=== PATIENT | female | born 1970 | race Caucasian/White ===

== ENCOUNTER 2023-01-17 07:50 | Outpatient (OUT) | payer OTHER, SELFPAY ==
--- NOTE | 2023-01-17 | XR_ITS ---
[address] [address] Patient Name: LORA DELGADILLO MRN: [id number] date: 1970 Sex: F Assigned Patient Location: [facility] Current Patient Location: [facility] Accession/Order Number: [id number] Exam Date: 01/17/2023 08:23 Report Date: 01/17/2023 09:20 At the request of: IVELISSE CLEMENT Procedure: XR lumbar spine 2-3V EXAM: XR lumbar spine 2-3V HISTORY: Low back pain COMPARISON: None. TECHNIQUE: 2 views FINDINGS: Satisfactory alignment. Disc spacers of L4-L5 with fusion of the vertebral bodies. Maintained vertebral body heights maintained. No acute fracture or subluxation. Mild multilevel endplate degenerative changes. Unremarkable soft tissues. XR/XR lumbar spine 2-3V IMPRESSION: No acute fracture. Electronically authenticated by: REY MUELLER Date: 01/17/2023 09:20
--- NOTE | 2023-01-17 07:59 | MM_ITS ---
Patient: LORA DELGADILLO Exam Date: 01/17/2023 : 1970 Gender:F Ordering : DR Karol Cabrera M.D. Admission #: [id number] Family : Order #: [id number] CLICK HERE TO VIEW EXAM RADIOLOGY REPORT PROCEDURE: MM TOMOSYNTHESIS SCREENING BI COMPARISON: MM SCREENING MAMMO BI, 04/07/2017. INDICATIONS: Screening for malignant neoplasm Calculator Name NCI Breast Cancer Risk Assessment Tool 5 Year Breast Cancer Risk 1.10% Lifetime Breast Cancer Risk 8.20% Personal Breast Cancer No Personal Ovarian Cancer No Treatments None Family Cancers Grandmother-paternal with ovarian cancer at age 52; Grandfather-paternal with lung cancer at age 56. LOCATION: [facility] BREAST COMPOSITION: Extremely dense, which lowers the sensitivity of mammography. FINDINGS: DIAGNOSTIC CATEGORY 2--BENIGN FINDING. NO CHANGE FROM COMPARISON. Scattered benign-appearing nodules are present. Scattered benign-appearing lymph nodes are present. RIGHT BREAST: No significant suspicious finding. LEFT BREAST: No significant suspicious finding. RECOMMENDATIONS: ROUTINE MAMMOGRAM AND CLINICAL EVALUATION IN 12 MONTHS. PLEASE NOTE: A NORMAL MAMMOGRAM DOES NOT EXCLUDE THE POSSIBILITY OF BREAST CANCER. A CLINICALLY SUSPICIOUS PALPABLE LUMP SHOULD BE BIOPSIED. Dictated by: Kalen Blancas MD on 01/17/2023 at 10:51 Approved by: Kalen Blancas MD on 01/17/2023 at 10:53
[2023-01-17 08:01] LABS: Basophils Absolute Auto 0.1 10^3/uL (0.0-0.1); Basophils Percent Auto 1.1 % (0.2-2.0); Eosinophils Absolute Auto 0.1 10^3/uL (0.0-0.7); Eosinophils Percent Auto 1.3 % (0.9-7.0); Hemoglobin 15.4 g/dL (12.0-16.0); Immature Granulocytes Abs Auto 0.02 10^3/uL (0.00-0.03); Immature Granulocytes Pct Auto 0.3 % (0.0-0.5); Lymphocytes Absolute Auto 3.5 10^3/uL (1.2-3.8); Lymphocytes Percent Auto 45.4 % (20.5-60.0); Mean Corpuscular HGB Conc 34.2 g/dL (29.9-35.2); Mean Corpuscular Hemoglobin 29.6 pg (26.7-34.0); Mean Corpuscular Volume 86.4 fL (81.0-99.0); Mean Platelet Volume 9.6 fL (9.5-13.5); Monocytes Absolute Auto 0.5 10^3/uL (0.3-0.8); Monocytes Percent Auto 6.6 % (1.7-12.0); Neutrophils Absolute Auto 3.5 10^3/uL (1.4-6.5); Neutrophils Percent Auto 45.3 % (43.0-75.0); Platelet Count 355 10^3/uL (150-450); Red Blood Count 5.21 10^6/uL (4.20-5.40); Red Cell Distribution Width 11.5 % (11.0-15.0); White Blood Count 7.6 10^3/uL (4.0-11.0)
[2023-01-17 08:33] LABS: Alanine Aminotransferase 28 U/L (14-59); Albumin Globulin Ratio 1.1; Alkaline Phosphatase 80 U/L (46-116); Anion Gap 12.9; Aspartate Amino Transferase 16 U/L (15-37); BUN Creatinine Ratio 18.1; Bilirubin Total 0.5 mg/dL (0.2-1.0); Calcium 9.3 mg/dL (8.5-10.1); Carbon Dioxide 27.5 mmol/L (21.0-32.0); Chloride 97 mmol/L (98-107); Chol HDL Ratio 5.3; Cholesterol 314 mg/dL (<=200); Estimated GFR (African America >60 (>=60); Estimated GFR (Non-African Ame >60 (>=60); Globulin 3.8 g/dL; Glucose 391 mg/dL (74-106); HDL Cholesterol 59 mg/dL (40-60); Potassium 4.4 mmol/L (3.5-5.1); Sodium 133 mmol/L (136-145); Total Protein 7.8 g/dL (6.4-8.2); Triglycerides 219 mg/dL (<=150); VLDL CHOLESTEROL 43.8 mg/dL
[2023-01-17 08:40] LABS: Estimated Average Glucose 309 mg/dL; Glycohemoglobin A1C 12.4 % (4.5-6.2)
== END 2023-01-17 07:51 | disposition home or self-care (01) ==
LOC: MAMMO 07:50
PROVIDERS: PCP Family Medicine; Visit Provider Family Medicine
DX: Z00.00 Encounter for general adult medical examination without abnormal findings (principal); Z12.31 Encounter for screening mammogram for malignant neoplasm of breast; M54.50 Low back pain, unspecified; Z80.41 Family history of malignant neoplasm of ovary; Z80.1 Family history of malignant neoplasm of trachea, bronchus and lung
CPT/HCPCS: 36415; 72100; 77063; 77067; 80053; 80061; 83036; 85025

== ENCOUNTER 2023-02-25 07:03 | Outpatient (RCR) | payer OTHER, SELFPAY | END 2023-03-30 07:45 | disposition home or self-care (01) | LOC: PT 07:03 | PROVIDERS: PCP Family Medicine; Visit Provider Physician Assistant | DX: M51.26 Other intervertebral disc displacement, lumbar region (principal); M53.3 Sacrococcygeal disorders, not elsewhere classified | CPT/HCPCS: 97010; 97012; 97014; 97110; 97113; 97140; 97163 ==

== ENCOUNTER 2023-03-31 09:50 | Outpatient (RCR) | payer OTHER, SELFPAY | END 2023-06-13 11:23 | disposition home or self-care (01) | LOC: PT 09:50 | PROVIDERS: PCP Family Medicine; Visit Provider Physician Assistant | DX: M51.26 Other intervertebral disc displacement, lumbar region (principal); M53.3 Sacrococcygeal disorders, not elsewhere classified | CPT/HCPCS: 97010; 97012; 97014; 97110; 97140 ==

== ENCOUNTER 2023-04-16 11:36 | Outpatient (OUT) | payer OTHER, SELFPAY ==
--- OUTSIDE RECORDS SUMMARY | 2023-04-16 11:44 | XMS_ITS | CCD ---
Author Name Unknown Address [address] [place] [address] Organization [facility] Care Team Providers Care Freight Trucker Name Role Phone Clark, Froilan S Unavailable Unavailable Unavailable, Family Physician Unavailable Un available Unavailable, Family Physician Unavailable Un available Clark, Froilan S Unavailable Unavailable Unavailable, Family Physician Unavailable Un available Unavailable, Family Physician Unavailable Un available Shall, Nagi F Unavailable Unavailable Unavailable, Family Physician Unavailable Un available Unavailable, Family Physician Unavailable Un available Shall, Nagi F Unavailable Unavailable Unavailable, Family Physician Unavailable Un available Unavailable, Family Physician Unavailable Un available URBANO, DR KAROL Elder Admitting Unavailable URBANO, DR KAROL Elder Attending Unavailable CABRERA, DR KAROL Elder Primary Care Unavailable DR KAROL CABRERA Admitting Unavailable URBANO, DR KAROL Elder Attending Unavailable CABRERA, DR KAROL Elder Primary Care Unavailable Karol Cabrera Unavailable Mihaela Toro Unavailable Allergies Allergy Classification Reported Allergen(s) Allergy Type Date of Onset Reaction(s) Facility (6 sources) Mushroom (edible) Propensity to adverse reactions Unknown myQaa Other (6 sources) Shellfish Propensity to adverse reactions Unknown myQaa Other (6 sources) [place] Propensity to adverse reactions Unknown myQaa Other (6 sources) HUMALON KWIK PEN Propensity to adverse reactions rash myQaa Other (3 sources) Allergies Reconciled Propensity to adverse reactions Unknown myQaa Other Medications Current Medications Medication Drug Class(es) Dates Sig (Normalized) Sig (Original) albuterol 0.83 mg/ml inhalation solution (6 sources) beta2-Adrenergic Agonist Albuterol Sulfate (2.5 MG/3ML) 0.083% 3 ml Inhalation Three times a day for 90 days Active aspirin 81 mg oral tablet (6 sources) Platelet Aggregation Inhibitor, Nonsteroidal Anti-inflammatory Drug take 1 tablet by mouth once daily Aspirin 81 81 MG 1 tablet Orally Once a day Active take 1 tablet by delores th every twenty-four hours Aspirin 81 81 MG 1 tablet Orally Once a day Active breath-actuated 120 actuat beclomethasone dipropionate 0.08 mg/actuat metered dose inhaler (6 sources) Corticosteroid Start: 02-23-2018 take 2 puff(s) by inhalation twice daily Qvar RediHaler 80 MCG/ACT 2 puffs Inhalation Twice a day for 90 days Jan, Active Benadryl Allergy 25 MG (2 sources) take 1 tablet by mouth at bedtime Benadryl Allergy 25 MG 1 tab Orally HS Active cetirizine hydrochloride 10 mg oral tablet (6 sources) Histamine-1 Receptor Antagonist take 1 tablet by mouth every twenty-four hours Cetirizine HCl 10 MG 1 tablet Orally Once a day otc Active dextromethorphan hydrobromide 15 mg / guaiFENesin 400 mg / pseudoephedrine hydrochloride 60 mg oral tablet (5 sources) alpha-Adrenergic Agonist, Uncompetitive V-nodxic-V-asparta te Receptor Antagonist, Sigma-1 Agonist Start: 09-14-2022 take 1 tablet by mouth every six hours as needed for cough Capmist DM 60-15-400 MG 1 tablet Orally q6hrs prn congestion/cough for 7 days Aug, Active diphenhydrAMINE hydrochloride 25 mg oral tablet (4 sources) Histamine-1 Receptor Antagonist take 1 tablet by mouth at bedtime Benadryl Allergy 25 MG 1 tab Orally HS Active 0.5 ml dulaglutide 3 mg/ml auto-injector (9 sources) GLP-1 Receptor Agonist Trulicity 1.5 MG/0.5ML INJECT 1 PEN SUBCUTANEOUSLY ONCE A WEEK for 28 Active DULoxetine 60 mg delayed release oral capsule (6 sources) Serotonin and Norepinephrine Reuptake Inhibitor take 1 capsule by mouth once daily DULoxetine HCl 60 MG TAKE 1 CAPSULE BY MOUTH EVERY DAY for 90 Active estrogens, conjugated (custodial) 0.625 mg/ml vaginal cream (6 sources) Estrogen Premarin 0.625 MG/GM _insert 1 GRAM VAGINALLY 3 TIMES A WEEK for 90 Active Premarin 0.625 M G/GM as directed Vaginal Not-Taking fenofibrate 160 mg oral tablet (6 sources) Peroxisome Proliferator Receptor alpha Agonist take 1 tablet by mouth once daily Fenofibrate 160 MG TAKE 1 TABLET BY MOUTH EVERY DAY for 90 Active FreeStyle Deidre 2 Sensor - (6 sources) FreeStyle Deidre 2 Sensor - USE DIRECTED for 28 Active FreeStyle Deidre 2 Sensor - USE DIRECTED for 28 Not-Taking 24 hr metoprolol succinate 25 mg extended release oral tablet (6 sources) beta-Adrenergic Leola take 1 tablet by mouth once daily Metoprolol Succinate ER 25 MG TAKE 1 TABLET BY MOUTH EVERY DAY for 90 Active montelukast 10 mg oral tablet (6 sources) Leukotriene Receptor Antagonist Start: take 1 tablet by mouth every twenty-four hours Singulair 10 MG 1 tablet Orally Once a day for 30 days Jun, Active Multivitamin Women - (6 sources) Multivitamin Wom en - Orally Active naproxen sodium 220 mg oral tablet (6 sources) Nonsteroidal Anti-inflammatory Drug take 2 tablets by mouth every twelve hours as needed Aleve 220 MG 2 tabs Orally every 12 hrs prn Active omeprazole 40 mg delayed release oral capsule (6 sources) Proton Pump Inhibitor take 1 capsule by mouth once daily Omeprazole 40 MG TAKE 1 CAPSULE BY MOUTH EVERY DAY for 90 Active pantoprazole 40 mg delayed release oral tablet (2 sources) Proton Pump Inhibitor Start: take 1 tablet by mouth every twenty-four hours Pantoprazole Sodium 40 MG 1 tablet Orally Once a day for 30 day(s) Dec, Active predniSONE 20 mg oral tablet (5 sources) Start: predniSONE 20 MG Take 3 tabs daily x 3 days, then take 2 tabs daily x 3 days, then take 1 tab daily x 3 days. Orally Once a day for 9 days Aug, Active ProAir HFA 108 (90 Base) MCG/ACT (6 sources) take 2 puff(s) by inhalation every four hours as needed ProAir HFA 108 (90 Base) MCG/ACT 2 puffs as needed Inhalation every 4 hrs for 90 days Active traMADol hydrochloride 50 mg oral tablet (2 sources) Opioid Agonist Start: take 1 tablet by mouth three times daily as needed traMADol HCl 50 MG 1 tablet as needed Orally tid prn for 7 days Dec, Active traZODone hydrochloride 150 mg oral tablet (6 sources) Serotonin Reuptake Inhibitor take 1 tablet by mouth once daily at bedtime traZODone HCl 150 MG TAKE 1 TABLET BY MOUTH EVERYDAY AT BEDTIME for 90 Active Completed/Discontinued Medications Medication Drug Class(es) Dates Sig (Normalized) Sig (Original) erythromycin 0.005 mg/mg ophthalmic ointment (6 sources) Macrolide, Macrolide Antimicrobial Start: 11-13-2019 Erythromycin 5 MG/GM 1 cm ribbon Ophthalmic Four times a day for 7 days Oct, Not-Taking FreeStyle Deidre [place] (6 sources) FreeStyle Deidre [place] check blood sugar for DM type 2 with hyperglycemia E11.65 monitor glucose 6 times a day for 14 days Not-Taking 3 ml insulin glargine 100 unt/ml pen injector (6 sources) Insulin Analog Lantus SoloStar 100 UNIT/ML 30units Subcutaneous 1 inearly morning for 90 day(s) dx: E11.65 Not-Taking metFORMIN hydrochloride 1000 mg oral tablet (6 sources) Biguanide take 1 tablet by mouth twice daily at lunch metFORMIN HCl 1000 mg 1 tablet with lunch and supper Orally bid for 90 days Not-Taking pravastatin sodium 20 mg oral tablet (6 sources) HMG-CoA Reductase Inhibitor Start: 04-29-2017 take 1 tablet by mouth every twenty-four hours Pravastatin Sodium 20 MG 1 tablet Orally Once a day for 90 day(s) Mar, Not-Taking Problems Active Problems Problem Classification Problem Date Documented Da te Episodic/Chronic Administrative/social admission (6 sources) Patient encounter status; Translations: [Dietary counseling and surveillance] Episodic Allergic reactions (3 sources) Allergic reaction; Translations: [Other allergy, initial encounter] Episodic Anxiety disorders (6 sources) Anxiety about body function or health; Translations: [Other specified anxiety disorders] Chronic Asthma (16 sources) Asthma; Translations: [Unspecified asthma, uncomplicated] Chronic Cardiac dysrhythmias (3 sources) Tachycardia; Translations: [Tachycardia, unspecified] Episodic Diabetes mellitus with complications (6 sources) Hyperglycemia due to type 2 diabetes mellitus; Translations: [Type 2 diabetes mellitus with hyperglycemia] Chronic Diabetes mellitus without complication (12 sources) Diabetes mellitus without complication; Translations: [Type 2 diabetes mellitus without complications] Chronic Disorders of lipid metabolism (9 sources) Pure hypercholesterolemia; Translations: [Pure hypercholesterolemia, unspecified] Chronic Esophageal disorders (17 sources) Ulcerative esophagitis; Translations: [Ulcer of esophagus without bleeding] Chronic Essential hypertension (6 sources) Hypertensive disorder; Translations: [Essential (primary) hypertension] Chronic Menopausal disorders (3 sources) Atrophic vaginitis; Translations: [Postmenopausal atrophic vaginitis] Chronic Mood disorders (6 sources) Recurrent major depressive episodes, moderate ; Translations: [Major depressive disorder, recurrent, moderate] Chronic Other aftercare (6 sources) Long-term current use of insulin; Translations: [care home (current) use of insulin] Episodic Other circulatory disease (3 sources) Elevated blood-pressure reading without diagnosis of hypertension; Translations: [Elevated blood-pressure reading, without diagnosis of hypertension] Episodic Other gastrointestinal disorders (6 sources) Dysphagia; Translations: [Dysphagia, unspecified] Episodic Other nervous system disorders (3 sources) Polyneuropathy; Translations: [Polyneuropathy, unspecified] Chronic Other nutritional; endocrine; and metabolic disorders (18 sources) Body mass index 30+ - obesity; Translations: [Body mass index (BMI) 37.0-37.9, adult] Chronic Other nutritional; endocrine; and metabolic disorders (6 sources) Morbid obesity; Translations: [Morbid (severe) obesity due to excess calories] Chronic Other nutritional; endocrine; and metabolic disorders (6 sources) Obese class I; Translations: [Body mass index (BMI) 33.0-33.9, adult] Chronic Other screening for suspected conditions (not mental disorders or infectious disease) (1 source) Encounter for screening mammogram for malignant neoplasm of breast Episodic Other upper respiratory infections (1 source) Acute upper respiratory infection, unspecified Episodic Residual codes; unclassified (6 sources) Obstructive sleep apnea syndrome; Translations: [Obstructive sleep apnea (adult) (pediatric)] Chronic Residual codes; unclassified (9 sources) Insomnia; Translations: [Insomnia, unspecified] Episodic Spondylosis; intervertebral disc disorders; other back problems (4 sources) Spinal stenosis of lumbar region; Translations: [Spinal stenosis, lumbar region without neurogenic claudication] Episodic Past or Other Problems Problem Classification Problem Date Documented Da te Episodic/Chronic Unclassified (1 source) Lumbar pain M54.50 Unclassified (1 source) Contact with and (suspected) exposure to covid-19 Z20.822 Results Test Name Value Interpretation Reference Range Facility COVID + FLU Quick Testingon 09-14-2022 SARS-CoV-2 (COVID-19) RNA BEVERLY+probe Ql (Unsp spec) Negative [facility] [employer] Other COVID + FLU Quick Testing Negative [employer] [facility] [employer] Other BASIC MET PANELon 06-14-2017 Anion gap 12 mmol/L Normal 6-18 [facility] Comment on above: Performed By: #### L500.30425 ####Test p erformed at: [address] [address] Calcium 8.8 mg/dL Normal 8.5-10.1 [facility] Comment on above: Performed By: #### L500.85989 ####Test p erformed at: [address] [address] Chloride 106 mmol/L Normal 98-107 [facility] Comment on above: Performed By: #### L500.23183 ####Test p erformed at: [place] [address] [place] [address] CO2 27 mmol/L Normal 21-32 [facility] Comment on above: Performed By: #### L500.38181 ####Test p erformed at: [address] [address] Creatinine 0.523 mg/dL Low 0.550-1.020 [facility] Comment on above: Performed By: #### L500.08835 ####Test p erformed at: [address] [address] Glucose mass conc 198 mg/dL High 74-106 [facility] Comment on above: Performed By: #### L500.70699 ####Test p erformed at: [place] [address] [place] [address] OSM 296 mosm/kg Normal 270-300 [facility] Comment on above: Performed By: #### L500.73523 ####Test p erformed at: [place] [address] Potassium molar conc 4.2 mmol/L Normal 3.5-5.1 [facility] Comment on above: Performed By: #### L500.07626 ####Test p erformed at: [place] [address] Sodium 141 mmol/L Normal 136-145 [facility] Comment on above: Performed By: #### L500.71926 ####Test p erformed at: [place] [address] Urea nitrogen 7 mg/dL Normal 7-18 [facility] Comment on above: Performed By: #### L500.13758 ####Test p erformed at: [place] [address] GFR ESTIMATEon 06-14-2017 IF AMER > 60 Normal > 60 [facility] Comment on above: Result Comment: eGFR (Estimated GFR) Uni ts of measure:mL/min/1.73 meters sq.*CALCULATION REVISED 01/17/2015;IDMS-traceable MDRD equationeGFR is derived from the reexpressed MDRD Study equationusing the following parameters: serum creatinine, age,gender and race. An eGFR<60 mL/min/1.73m2 for >3 monthsis consistent with chronic kidney disease. Refer to KDOQIguidelines for clinical interpretation. Performed By: #### L 500.10208 ####Test performed at: [place] [address] IF non-AFR AMER > 60 Normal > 60 [facility] Comment on above: Performed By: #### L500.34508 ####Test p erformed at: [place] [address] GLUCOSE METERon 06-14-2017 Glucose mass conc 181 mg/dL High 70-110 [facility] Comment on above: Result Comment: Insulin per sl scale Performed By: #### L 500.52513 ####Test performed at: [address] [address] Glucose mass conc 240 mg/dL High 70-110 [facility] Comment on above: Result Comment: Insulin per sl scale Performed By: #### L 500.53180 ####Test performed at: [address] [address] HGB AND HCTon 06-14-2017 Hematocrit (HCT) 36.1 % Normal 36.0-48.0 [facility] Comment on above: Performed By: #### L500.37852 ####Test p erformed at: [address] [address] Hemoglobin mass conc (Bld) 12.3 g/dL Invalid Interpretation Code 12.0-15.0 [facility] Comment on above: Result Comment: Delta: 14.3 on 06/06/17- 1308 Performed By: #### L 500.45848 ####Test performed at: [address] [address] GLUCOSE METERon 06-13-2017 Glucose mass conc 222 mg/dL High 70-110 [facility] Comment on above: Result Comment: Follow protocol Performed By: #### L 500.97306 ####Test performed at: [address] [address] Glucose mass conc 160 mg/dL High 70-110 [facility] Comment on above: Result Comment: Follow protocol Performed By: #### L 500.65187 ####Test performed at: [address] [address] Glucose mass conc 123 mg/dL High 70-110 [facility] Comment on above: Result Comment: Physician notifiedFollow protocol Performed By: #### L 500.16786 ####Test performed at: [place] [id number] [place] [address] OPERATIVE REPORTon 8 OPERATIVE REPORT NAME: JUNIOR DELGADILLO#: [id number]: Nagi Herbert Chace, MDDATE OF SURGERY: 06/13/2017OPERATIVE REPORTPREOPERATIVE DIAGNOSIS: Laminal stenosis, lumbar.POSTOPERATIVE DIAGNOSIS: Laminal stenosis, lumbar.OPERATIVE PROCEDURE: Left L3-L4 laminotomy, foraminotomy, decompression withpartial medial facetectomy.PROCEDURE IN DETAIL: After anesthesia, the patient was placed prone on a spineframe. Care was taken to avoid injury to the eyes, the axilla, and the medianand ulnar nerves. The back was prepped and draped in usual fashion. Theincision was planned using a needle and C-arm in AP and lateral planes. Alongitudinal incision was made over L3-L4 with sharp dissection ofsubcutaneous tissues. The fascia and paraspinal muscles were dissectedbluntly down the left L3-L4 interspace, and a tubular retractor was insertedand x-ray confirmed position in AP and lateral planes. The left L3 lamina wascleared of soft tissue and directly visualized. Under magnification, thelamina and medial facet was thinned with a bur. Laminotomy was performedremoving the inferior aspect of the L3 lamina with Kerrison rongeurs. Apartial medial facetectomy was performed with Kerrison rongeurs. The ligamentwas released with a nerve hook and removed with Kerrison rongeurs whileprotecting the dura. The superior aspect of the L4 lamina was removed withKerrison rongeurs and in doing so, the traversing L4 root was welldecompressed. The lateral recess was decompressed with straight and curvedKerrison rongeurs, and a foraminotomy was performed with curved Kerrisonrongeurs. After thorough decompression, the epidural space was palpated witha Noble hook. The foramen was patent. The exiting L3 root was welldecompressed. The lateral recess was well decompressed, and the traversing L4root was well decompressed. The wound was then irrigated with saline Betadinesolution. Hemostasis was achieved with FloSeal. The paraspinal muscles wereinjected with 0.5% Marcaine. The tubular retractor was removed and bleedingcoagulated. The fascia, subcutaneous tissues, and skin closed in the usualmanner. Dressings were applied. The patient was turned supineawakened, taken to recovery room in excellent condition, and there were nocomplications. [facility] NAME: ANIYAH DELGADILLOBinu#: [id number] [place] [address] ACCT: [id number]: 68OPERATIVE REPORTJFS/MODL/[id number] [id number]: 06/13/2017 14:19:57 E/S: Nagi Mas MD07/01/17 1329Electronically SignedSTKINDRED HOSPITAL PT NAME: ANIYAH DELGADILLOBinu#: [id number] [place] [id number] ACCT: [id number]: 68OPERATIVE REPORT Normal [facility] LUMBAR SPINE 2 OR 3 VIEWSon 06-12-2017 LUMBAR SPINE 2 OR 3 VIEWS Exam: Fluoroscopy lumbar spineClinical History: LEFT L3-L4 LAMINECTOMY, FORAMINOTOMY, DECOMPRESSIONComparison: None.Findings: Intraoperative fluoroscopic images demonstrate surgicalinstruments posterior to L3-4.Impression:As aboveDictated: 06/13/17 1446REPORT SIGNATURE ON FILE06/13/17(1446) Reported By: KALYANI VELASQUEZSigned By: KALYANI VELASQUEZ Normal [facility] CBC W/DIFFon 06-06-2017 BASO ABS 0.1 K/uL Normal 0.0-0.2 [facility] Comment on above: Order Comment: CBN: YESCampus: MAIN Performed By: #### L 200.28044 ####Test performed at: [address] [address] Basophils/100 WBC Auto (Bld) 0.9 % Normal [facility] Comment on above: Order Comment: CBN: YESCampus: MAIN Performed By: #### L 200.63242 ####Test performed at: [address] [address] EOS ABS 0.0 K/uL Normal 0.0-0.5 [facility] Comment on above: Order Comment: CBN: YESCampus: MAIN Performed By: #### L 200.05077 ####Test performed at: [address] [address] Eosinophils/100 leukocytes 0.3 % Normal [facility] Comment on above: Order Comment: CBN: YESCampus: MAIN Performed By: #### L 200.32984 ####Test performed at: [address] [address] Erythrocyte distribution width Auto Ratio (RBC) 12.2 % Normal 11.5-14.5 [facility] Comment on above: Order Comment: CBN: YESCampus: MAIN Performed By: #### L 200.88581 ####Test performed at: [address] [address] Erythrocytes (RBC) 4.87 10*6/uL Normal 3.5-5.5 [facility] Comment on above: Order Comment: CBN: YESCampus: MAIN Performed By: #### L 200.99216 ####Test performed at: [address] [address] Erythrocytes (RBC) 0.000 10*6/uL Normal 0-0.012 [facility] Comment on above: Order Comment: CBN: YESCampus: MAIN Performed By: #### L 200.38051 ####Test performed at: [address] [address] Hematocrit (HCT) 42.2 % Normal 36.0-48.0 [facility] Comment on above: Order Comment: CBN: YESCampus: MAIN Performed By: #### L 200.87984 ####Test performed at: [address] [address] Hemoglobin mass conc (Bld) 14.3 g/dL Normal 12.0-15.0 [facility] Comment on above: Order Comment: CBN: YESCampus: MAIN Performed By: #### L 200.90168 ####Test performed at: [address] [address] IG % 0.3 % Normal [facility] Comment on above: Order Comment: CBN: YESCampus: MAIN Performed By: #### L 200.97894 ####Test performed at: [address] [address] IG ABS 0.03 K/uL Normal 0-0.05 [facility] Comment on above: Order Comment: CBN: YESCampus: MAIN Performed By: #### L 200.99880 ####Test performed at: [address] [address] Lymphocytes 3.7 10*3/uL High 1.2-3.5 [facility] Comment on above: Order Comment: CBN: YESCampus: MAIN Performed By: #### L 200.00117 ####Test performed at: [address] [address] Lymphocytes/100 leukocytes 40.3 % Normal [facility] Comment on above: Order Comment: CBN: YESCampus: MAIN Performed By: #### L 200.78572 ####Test performed at: [address] [address] MCH 29.4 pg Normal 25.4-34.6 [facility] Comment on above: Order Comment: CBN: YESCampus: MAIN Performed By: #### L 200.76267 ####Test performed at: [address] [address] MCHC mass conc (RBC) 33.9 g/dL Normal 31.5-36.5 [facility] Comment on above: Order Comment: CBN: YESCampus: MAIN Performed By: #### L 200.29808 ####Test performed at: [address] [address] MCV 86.7 fL Normal 79.0-98.0 [facility] Comment on above: Order Comment: CBN: YESCampus: MAIN Performed By: #### L 200.20088 ####Test performed at: [address] [address] MONO ABS 0.5 K/uL Normal 0.0-1.0 [facility] Comment on above: Order Comment: CBN: YESCampus: MAIN Performed By: #### L 200.53708 ####Test performed at: [address] [address] Monocytes/100 leukocytes 5.8 % Normal [facility] Comment on above: Order Comment: CBN: YESCampus: MAIN Performed By: #### L 200.58782 ####Test performed at: [address] [address] Neutrophils 4.8 10*3/uL Normal 1.4-6.6 [facility] Comment on above: Order Comment: CBN: YESCampus: MAIN Performed By: #### L 200.53613 ####Test performed at: [address] [address] Neutrophils/100 WBC Auto (Bld) 52.4 % Normal [facility] Comment on above: Order Comment: CBN: YESCampus: MAIN Performed By: #### L 200.60100 ####Test performed at: [address] [address] NRBC % 0.0 /100 WBC Normal 0-0.2 [facility] Comment on above: Order Comment: CBN: YESCampus: MAIN Performed By: #### L 200.62576 ####Test performed at: [address] [address] Platelet mean volume (PMV) 9.8 fL Normal 8.7-12.4 [facility] Comment on above: Order Comment: CBN: YESCampus: MAIN Performed By: #### L 200.40595 ####Test performed at: [address] [address] Platelets 344 10*3/uL Normal 140-440 [facility] Comment on above: Order Comment: CBN: YESCampus: MAIN Performed By: #### L 200.75067 ####Test performed at: [address] [address] WBC (Leukocytes) 9.2 10*3/uL Normal 3.9-11.0 [facility] Comment on above: Order Comment: CBN: YESCampus: MAIN Performed By: #### L 200.87235 ####Test performed at: [address] [address] PROTIMEon 06-06-2017 INR Coag RelTime (PPP) 0.97 {INR} Normal 0.00-1.20 [facility] Comment on above: Order Comment: CBN: YESCampus: MAINList patient's anticoagulants for PT: NONE SPECIFIEDList patient's anticoagulant for PTT: NONE SPECIFIED Result Comment: Jeremiah mmended therapeutic range is an INR of 2.0-3.0 exceptfor prevention of recurrent acute IN and mechanicalprosthetic heart valve where an INR of 2.5-3.5 isrecommended. Performed By: #### L 300.33512, L300.49316 ####Test performed at: [place] [address] PT SEC 10.3 seconds Normal 9.7-11.5 [facility] Comment on above: Order Comment: CBN: YESCampus: MAINList patient's anticoagulants for PT: NONE SPECIFIEDList patient's anticoagulant for PTT: NONE SPECIFIED Performed By: #### L 300.63108, L300.64089 ####Test performed at: [place] [address] PTTon 06-06-2017 aPTT 26.1 s Normal 22.8-32.5 [facility] Comment on above: Order Comment: CBN: YESCampus: MAINList patient's anticoagulants for PT: NONE SPECIFIEDList patient's anticoagulant for PTT: NONE SPECIFIED Performed By: #### L 300.99402, L300.11109 ####Test performed at: [place] [address] TSPATon 06-06-2017 ANTIBODY SCREEN Negative Normal [facility] Comment on above: Order Comment: CBN: YESCampus: MAINTrans fusion Status: CONSERVATIONBlood Bank service requested: TYPE AND SCREENSpecimen Comment: SURG 06/13 Performed By: #### B 100.0201 ####Test performed at: [place] [address] BLOOD TYPE Positive Normal [facility] Comment on above: Order Comment: CBN: YESCampus: MAINTrans fusion Status: CONSERVATIONBlood Bank service requested: TYPE AND SCREENSpecimen Comment: SURG 06/13 Performed By: #### B 100.0201 ####Test performed at: [place] [address] MRI LUMBAR SP WO CONTRASTon 04-09-2017 MRI LUMBAR SP WO CONTRAST STUDY:MRI LUMBAR SP WO CONTRAST; 04/09/2017 9:25 amINDICATION:POST LAMI SYNDROME, OA, LBP, LLE PARESTHESIA.COMPARISON:Rad iographs March 18, 2017ACCESSION NUMBER(S):[id number] CARLOS CLINICIAN:Froilan Guzman:Sagittal and axial T1 and T2 weighted images of the lumbar spine wereacquired. Sagittal STIR images were also submitted for review.FINDINGS:Alignment: The vertebral alignment is maintained.Vertebrae/Inter vertebral Discs: The vertebral bodies demonstrateexpected height.There has been fusion of L4 on L5 and L5 on S1. Thereis disc desiccation and degenerative endplate spurring at L3/4.Conus: The lower thoracic cord appears unremarkable. The conusterminates at L1/2.T12-L1: There is no significant central canal or neural foraminalstenosis.L1-2: There is no significant central canal or neural foraminalstenosis.L2-3: There is no significant central canal or neural foraminalstenosis.L3-4: Mild facet and ligamentum flavum hypertrophy are demonstrated.There is circumferential disc bulging with flattening of the ventralthecal sac and very mild narrowing of the central canal. There ismild left and minimal right neural foraminal narrowing due toasymmetric disc bulge versus small intraforaminal protrusion on theleft. There is slight posterior displacement of the exiting left H5ygzhl root.L4-5: The patient is status post fusion. There is minimalencroachment on the right neural foramen due to hypertrophic endplatespurring. There is no significant central canal stenosis.L5-S1: The patient is status post fusion. There is mild hypertrophicendplate spurring slightly impressing on the ventral thecal sac.There is also mild encroachment on the neural foramina but no centralcanal stenosis.The prevertebral and posterior paraspinous soft tissues areunremarkable.IMPRESSION :1. Status post fusion from L4 through S1.2. Degenerative changes primarily involving L3/4. Normal [facility] CBC W/DIFFon 03-18-2017 BASO ABS 0.1 K/uL Normal 0.0-0.2 [facility] Comment on above: Order Comment: CBN: YESCampus: MAIN Performed By: #### L 200.52280, L200.82996 ####Test performed at: [address] [address] Basophils/100 WBC Auto (Bld) 0.9 % Normal [facility] Comment on above: Order Comment: CBN: YESCampus: MAIN Performed By: #### L 200.33952, L200.90708 ####Test performed at: [address] [address] EOS ABS 0.2 K/uL Normal 0.0-0.5 [facility] Comment on above: Order Comment: CBN: YESCampus: MAIN Performed By: #### L 200.60560, L200.01183 ####Test performed at: [address] [address] Eosinophils/100 leukocytes 2.2 % Normal [facility] Comment on above: Order Comment: CBN: YESCampus: MAIN Performed By: #### L 200.36806, L200.86243 ####Test performed at: [address] [address] Erythrocyte distribution width Auto Ratio (RBC) 12.6 % Normal 11.5-14.5 [facility] Comment on above: Order Comment: CBN: YESCampus: MAIN Performed By: #### L 200.67507, L200.26966 ####Test performed at: [address] [address] Erythrocytes (RBC) 4.60 10*6/uL Normal 3.5-5.5 [facility] Comment on above: Order Comment: CBN: YESCampus: MAIN Performed By: #### L 200.81255, L200.05450 ####Test performed at: [address] [address] Erythrocytes (RBC) 0.000 10*6/uL Normal 0-0.012 [facility] Comment on above: Order Comment: CBN: YESCampus: MAIN Performed By: #### L 200.31422, L200.39551 ####Test performed at: [address] [address] Hematocrit (HCT) 39.7 % Normal 36.0-48.0 [facility] Comment on above: Order Comment: CBN: YESCampus: MAIN Performed By: #### L 200.21026, L200.03349 ####Test performed at: [address] [address] Hemoglobin mass conc (Bld) 13.5 g/dL Normal 12.0-15.0 [facility] Comment on above: Order Comment: CBN: YESCampus: MAIN Performed By: #### L 200.59164, L200.83852 ####Test performed at: [place] [id number] IG % 1.0 % Normal [facility] Comment on above: Order Comment: CBN: YESCampus: MAIN Performed By: #### L 200.57489, L200.06714 ####Test performed at: [address] [address] IG ABS 0.09 K/uL High 0-0.05 [facility] Comment on above: Order Comment: CBN: YESCampus: MAIN Performed By: #### L 200.54789, L200.65693 ####Test performed at: [address] [address] Lymphocytes 3.3 10*3/uL Normal 1.2-3.5 [facility] Comment on above: Order Comment: CBN: YESCampus: MAIN Performed By: #### L 200.42133, L200.41129 ####Test performed at: [address] [address] Lymphocytes/100 leukocytes 38.1 % Normal [facility] Comment on above: Order Comment: CBN: YESCampus: MAIN Performed By: #### L 200.70201, L200.55778 ####Test performed at: [address] [address] MCH 29.3 pg Normal 25.4-34.6 [facility] Comment on above: Order Comment: CBN: YESCampus: MAIN Performed By: #### L 200.72356, L200.05674 ####Test performed at: [address] [address] MCHC mass conc (RBC) 34.0 g/dL Normal 31.5-36.5 [facility] Comment on above: Order Comment: CBN: YESCampus: MAIN Performed By: #### L 200.18324, L200.83857 ####Test performed at: [address] [address] MCV 86.3 fL Normal 79.0-98.0 [facility] Comment on above: Order Comment: CBN: YESCampus: MAIN Performed By: #### L 200.47553, L200.21637 ####Test performed at: [address] [address] MONO ABS 0.5 K/uL Normal 0.0-1.0 [facility] Comment on above: Order Comment: CBN: YESCampus: MAIN Performed By: #### L 200.59891, L200.75633 ####Test performed at: [address] [address] Monocytes/100 leukocytes 5.3 % Normal [facility] Comment on above: Order Comment: CBN: YESCampus: MAIN Performed By: #### L 200.21547, L200.65225 ####Test performed at: [address] [address] Neutrophils 4.6 10*3/uL Normal 1.4-6.6 [facility] Comment on above: Order Comment: CBN: YESCampus: MAIN Performed By: #### L 200.66615, L200.42363 ####Test performed at: [address] [address] Neutrophils/100 WBC Auto (Bld) 52.5 % Normal [facility] Comment on above: Order Comment: CBN: YESCampus: MAIN Performed By: #### L 200.42660, L200.34671 ####Test performed at: [address] [address] NRBC % 0.0 /100 WBC Normal 0-0.2 [facility] Comment on above: Order Comment: CBN: YESCampus: MAIN Performed By: #### L 200.60767, L200.83406 ####Test performed at: [address] [address] Platelet mean volume (PMV) 10.4 fL Normal 8.7-12.4 [facility] Comment on above: Order Comment: CBN: YESCampus: MAIN Performed By: #### L 200.50590, L200.16959 ####Test performed at: [address] [address] Platelets 331 10*3/uL Normal 140-440 [facility] Comment on above: Order Comment: CBN: YESCampus: MAIN Performed By: #### L 200.13932, L200.64564 ####Test performed at: [address] [address] WBC (Leukocytes) 8.7 10*3/uL Normal 3.9-11.0 [facility] Comment on above: Order Comment: CBN: YESCampus: MAIN Performed By: #### L 200.19575, L200.34253 ####Test performed at: [address] [address] CRPon 03-18-2017 C reactive protein (CRP) mg/L Normal 0.0-3.0 [facility] Comment on above: Order Comment: CBN: YESCampus: MAIN Performed By: #### L 500.13017 ####Test performed at: [place] [id number] LUMB SP COMP W FLEX/EXT 6 VW Son 03-18-2017 LUMB SP COMP W FLEX/EXT 6 VWS STUDY:LUMB SP COMP W FLEX/EXT 6 VWS ; 03/18/2017 9:37 amINDICATION:. Back painCOMPARISON:None.ACCESS ION NUMBER(S):[id number] CARLOS CLINICIAN:Froilan Dalton:There is solid osseous interbody fusion from L4-S1. There are milddegenerative changes of the upper lumbar spine. Mild dextroscoliosiscentered at L3. No spondylolisthesis. No instability on extension orflexion. No pars defects are identified.IMPRESSION:Osse ous interbody fusion from L4-S1. Degenerative changes of thelumbar spine without instability. Normal [facility] RA FACTOR QUANTon 03-18-2017 RA FACTOR QUANT < 10 Normal <15 [facility] Comment on above: Order Comment: CBN: YESCampus: MAIN Performed By: #### L 700.21412 ####Test performed at: [place] [id number] WSR/MODon 03-18-2017 WSR/MOD 21 mm/hr High 0-20 [facility] Comment on above: Order Comment: CBN: YESCampus: MAIN Performed By: #### L 200.55093, L200.16657 ####Test performed at: [address] [address] Vital Signs Date Time Vital Sign Value Performing Clinician Facility 01-23-2023 09:00-0400 Body height 160.02 cm Karol Cabrera Other [facility] Other 01-23-2023 09:00-0400 Body mass index (BMI) [Ratio] 31.7 kg/m2 Karol Cabrera Other [facility] Other 01-23-2023 09:00-0400 Body weight 81.19 kg Karol Cabrera Other [facility] Other 01-23-2023 09:00-0400 Diastolic blood pressure 72 mm[Hg] Karol Urbano Other [facility] Other 01-23-2023 09:00-0400 Systolic blood pressure 123 mm[Hg] Karol Urbano Other [facility] Other 09-14-2022 09:20-0400 Body height 160.02 cm Mihaela Toro Other [facility] Other 09-14-2022 09:20-0400 Body mass index (BMI) [Ratio] 30.93 kg/m2 Mihaela Toro Other [facility] Other 09-14-2022 09:20-0400 Body temperature 98.5 [degF] Mihaela Toro Other [facility] Other 09-14-2022 09:20-0400 Body weight 79.2 kg Mihaela Toro Other [facility] Other 09-14-2022 09:20-0400 Diastolic blood pressure 78 mm[Hg] Mihaela Toro Other [facility] Other 09-14-2022 09:20-0400 Respiratory rate 18 /min Mihaela Toro Other [facility] Other 09-14-2022 09:20-0400 SaO2% (BldA) [Mass fraction] 96 % Mihaela Toro Other [facility] Other 09-14-2022 09:20-0400 Systolic blood pressure 115 mm[Hg] Mihaela Muna Other [facility] Other 07-11-2022 10:00-0400 Body height 160.02 cm Karol Cabrera Other [facility] Other 07-11-2022 10:00-0400 Body mass index (BMI) [Ratio] 31.53 kg/m2 Karol Cabrera Other [facility] Other 07-11-2022 10:00-0400 Body weight 80.74 kg Karol Cabrera Other [facility] Other 07-11-2022 10:00-0400 Diastolic blood pressure 80 mm[Hg] Karol Cabrera Other [facility] Other 07-11-2022 10:00-0400 SaO2% (BldA) [Mass fraction] 97 % Karol Cabrera Other [facility] Other 07-11-2022 10:00-0400 Systolic blood pressure 124 mm[Hg] Karol Cabrera Other [facility] Other Encounters Encounter Date Encounter Type Care Provider Facility Start: 02-14-2023 End: 02-14-2023 ambulatory Karol Cabrera Other [facility] Other Start: 02-14-2023 Telephone encounter Karol Cabrera [facility] Start: 01-23-2023 End: 01-23-2023 ambulatory Karol Cabrera Other [facility] Other Start: 01-23-2023 Office outpatient vi sit 15 minutes Karol Cabrera [facility] Start: 01-17-2023 End: 01-17-2023 ambulatory Karol Cabrera Other [facility] Other Start: 01-17-2023 Telephone encounter Karol Cabrera [facility] Start: 10-04-2022 End: 10-04-2022 ambulatory Karol Cabrera Other [facility] Other Start: 10-04-2022 Telephone encounter Karol Cabrera [facility] Start: 09-14-2022 End: 09-14-2022 ambulatory Mihaela Toro Other [facility] Other Start: 09-14-2022 Office outpatient vi sit 15 minutes Mihaela Toro [facility] Start: 07-11-2022 End: 07-11-2022 ambulatory Karol Cabrera Other [facility] Other Start: 07-11-2022 Encounter for genera l adult medical examination without abnormal findings Karol Cabrera [facility] Start: 07-11-2022 Periodic preventive med est patient 40-64yrs Karol Cabrera [facility] Start: 07-10-[address] KAROL CABRERA Facil ity:H1 Start: 12-18-[address] KAROL CABRERA Facil ity:H1 Start: 07-02-2021 Adult health examination Karol Cabrera Other [facility] Other Start: 06-13-2017 End: 06-14-2017 Ambulatory Nagi Mas Facility:[facility] Start: 06-13-2017 Ambulatory Facility:[id number] Start: 06-06-2017 Ambulatory Nagi Mas Facilit y:[facility] Start: 04-09-2017 Ambulatory Froilan Rodas Facility: [facility] Start: 04-09-2017 Ambulatory Facility:[id number] Start: 03-18-2017 Ambulatory Froilan S Clark Facility: [facility] Start: 03-18-2017 Ambulatory Facility:[id number] Procedures Date Procedure Procedure Detail Performing Clinician Screening for malign ant neoplasm of breast Karol Cabrera Other Immunizations Immunization Date Immunization Notes Care Provider Fa cility 07-31-2020 COVID-19 Vaccine Pfi zer - Documentation Purposes Only Karol Cabrera Other [facility] Other 07-10-2020 COVID-19 Vaccine Pfi zer - Documentation Purposes Only Karol Cabrera Other [facility] Other 01-28-2019 influenza, injectabl e, quadrivalent, preservative free Karol Cabrera Other [facility] Other 02-11-2017 influenza, injectabl e, quadrivalent, preservative free Karol Cabrera Other [facility] Other 02-07-2016 influenza, high dose seasonal, preservative-free Karol Cabrera Other [facility] Other Payers Date Payer Category Payer Unknown [id number] 1970 Unknown [id number] 1961 Self-pay [id number] 1961 Unknown [id number] Social History Date Type Detail Facility Unknown if ever smoked [facility] Other Sex Assigned At Sex Assigned At Bir th [facility] Other Medical Equipment Procedure Code Equipment Code Equipment Origin al Text Equipment Identifier Dates Start: 08-15-2016 Evaluation note 02-14-2023 Note Date & Type Note Facility 02-14-2023 Evaluation note Encounter Date Diagnosis Assessment Notes Jan, Gastro-esophage al reflux disease without esophagitis (ICD-10 - K21.9) [facility] Other Evaluation note 01-23-2023 Note Date & Type Note Facility 01-23-2023 Evaluation note Encounter Date Diagnosis Assessment Notes Dec, Gastro-esophagea l reflux disease without esophagitis (ICD-10 - K21.9) Switch PPIs. Call if no improvement for a GI referral/EGD. Dec, Lumbar radiculopathy (ICD-10 - M54.16) Pt has not had improvement w NSAIDs. She is miserable and struggles getting out of bed or a chair. This is affecting her daily life. [facility] Other Evaluation note 09-14-2022 Note Date & Type Note Facility 09-14-2022 Evaluation note Encounter Date Diagnosis Assessment Notes Aug, Viral URI with cough (ICD-10 - J06.9) Discussed with patient exam and history is consistent with viral upper respiratory infection. Discussed viral nature of illness and typical duration of 7 to 14 days. Advised antibiotics unfortunately do not treat viral illnesses. May use symptomatic treatment such as capmist rx. May use Tylenol/ibuprofe n for any pain/fever. Follow-up with PCP if not improving over the next 7 days, sooner if significantly worsening symptoms. Aug, Moderate asthma with acute exacerbation, unspecified whether persistent (ICD-10 - J45.901) We will treat with 9-day prednisone taper. Finish entire course. Continue maintenance and rescue inhalers. Follow-up with PCP if not gradually improving over the next 4 to 5 days, sooner if rapidly worsening shortness of breath or wheezing. Patient verbalized understanding of treatment plan. Aug, Contact with and (suspected) exposure to covid-19 (ICD-10 - Z20.822) [facility] Other Evaluation note 07-11-2022 Note Date & Type Note Facility 07-11-2022 Evaluation note Encounter Date Diagnosis Assessment Notes Jun, Wellness examination (ICD-10 - Z00.00) Reprinted labs that were ordered earlier this week Jun, Screening mammogram for breast cancer (ICD-10 - Z12.31) due for screening Jun, Lumbar pain (ICD-10 - M54.50) Start with lumbar xray. pt questions her level of spinal stenosis. Est w [facility]. Jun, Moderate persistent asthma with allergic rhinitis with acute exacerbation (ICD-10 - J45.41) Worsened problem. Add singulair. Followup in 1 month to monitor results. Discussed potential referral to Pulm. [facility] Other Evaluation note Note Date & Type Note Facility Evaluation note No Information [facility] Other History general Narrative - Reported Note Date & Type Note Facility History general Narrative - Reported Type Medical History Hiatal Hernia Medical History GERD Medical History sp Complete Hysterctomy Medical History Type 2 diabetes Medical History hypercholesterolemia Medical History asthma Medical History myalgias Medical History weight loss Medical History dyshpagia Medical History ULCERATIVE ESOPHAGIT IS PER EGD 12/2015 Medical History spinal stenosis Surgical History Total abdominal hyst erectomy bilateral salpingo-opherectomy 2004 Surgical History back surgery remote past Surgical History carpel tunnel surgery 05/2015 Surgical History esophageal stricture -Dr. Vargas 2015 Hospitalization History See above Hospitalization History two live births Hospitalization History back surgery [facility] Other Summary Purpose Family History No Family History Records FoundNo Family History Records FoundNo Family History Records Found Advance Directives No Advanced Directives Records FoundNo Advanced Directives Records FoundNo Advanced Directives Records Found Reason for Referral Reason *FU 01/[address] Mas/Kelly; recent xray. Increased pain and sciatica to L leg. Diagnosis 1 Lumbar radiculopathy (M54.16) Referral Organization [facility] Referring Provider First Name Karol Referring Provider Last Name Urbano Referring Provider Specialty Family Medi cine Referred Organization Unknown Facility Referred Provider Louis Betancourt Jr. Referred Provider Specialty Pain Medicin e Referral Priority Routine General Notes Aurea Valverde 01:09:00 PM >received today, attachments made, notes locked, referral faxed Additional Source Comments INFORMATION SOURCE (unrecogn ized section and content) DATE CREATED AUTHOR 09/18/2017 [facility] DATE CREATED AUTHOR AUTHOR'S ORGANIZ ATION 09/19/2017 [facility] DATE CREATED AUTHOR AUTHOR'S ORGANIZ ATION 07/09/2022 [facility] REASON FOR VISIT (unrecogniz ed section and content) Wellnesscough, will not go a waymessagetestsarthritis painrefill FOR RECORDS PERTAINING TO PATIENTS WHO ARE OR HAVE BEEN ENROLLED IN A CHEMICAL DEPENDENCY/SUBSTANCEABUSE PROGRAM, SOME INFORMATION MAY BE OMITTED. This clinical summary was aggregated from multiple sources. Caution should be exercised in using it in the provision of clinical care. This summary normalizes information from multiple sources, and as a consequence, information in this document may materially change the coding, format and clinical context of patient data. In addition, data may be omitted in some cases. CLINICAL DECISIONS SHOULD BE BASED ON THE PRIMARY CLINICAL RECORDS. [facility] [employer]. provides no warranty or guarantee of the accuracy or completeness of information in this document.
[2023-04-16 12:56] LABS: Anion Gap 16.3; BUN Creatinine Ratio 15.6; C Reactive Protein <0.50 mg/dL (<=0.50); Calcium 9.5 mg/dL (8.5-10.1); Carbon Dioxide 27.2 mmol/L (21.0-32.0); Chloride 98 mmol/L (98-107); Estimated GFR (African America >60 (>=60); Estimated GFR (Non-African Ame >60 (>=60); Glucose 370 mg/dL (74-106); Potassium 4.5 mmol/L (3.5-5.1); Sodium 137 mmol/L (136-145); Thyroid Stimulating Hormone 0.893 uIU/mL (0.358-3.740)
[2023-04-16 13:35] LABS: Estimated Average Glucose 306 mg/dL; Glycohemoglobin A1C 12.3 % (4.5-6.2)
[2023-04-16 13:40] LABS: Basophils Absolute Auto 0.1 10^3/uL (0.0-0.1); Basophils Percent Auto 0.8 % (0.2-2.0); Eosinophils Absolute Auto 0.1 10^3/uL (0.0-0.7); Eosinophils Percent Auto 1.8 % (0.9-7.0); Hematocrit 42.8 % (36.0-48.0); Hemoglobin 14.6 g/dL (12.0-16.0); Immature Granulocytes Abs Auto 0.03 10^3/uL (0.00-0.03); Immature Granulocytes Pct Auto 0.4 % (0.0-0.5); Lymphocytes Percent Auto 40.5 % (20.5-60.0); Mean Corpuscular HGB Conc 34.1 g/dL (29.9-35.2); Mean Corpuscular Hemoglobin 29.5 pg (26.7-34.0); Mean Corpuscular Volume 86.5 fL (81.0-99.0); Mean Platelet Volume 9.9 fL (9.5-13.5); Monocytes Absolute Auto 0.4 10^3/uL (0.3-0.8); Neutrophils Absolute Auto 3.7 10^3/uL (1.4-6.5); Neutrophils Percent Auto 50.5 % (43.0-75.0); Platelet Count 364 10^3/uL (150-450); Red Blood Count 4.95 10^6/uL (4.20-5.40); White Blood Count 7.3 10^3/uL (4.0-11.0)
[2023-04-16 14:14] LABS: Erythrocyte Sedimentation Rate 39 mm/hr (<=30)
[2023-04-17 05:07] LABS: Rheumatoid Factor (RF) <10.0 IU/mL (<14.0)
== END 2023-04-16 11:37 | disposition home or self-care (01) ==
LOC: LAB 11:41
PROVIDERS: PCP Family Medicine; Visit Provider Family Medicine
DX: E11.65 Type 2 diabetes mellitus with hyperglycemia (principal); R25.1 Tremor, unspecified; I10 Essential (primary) hypertension; M25.50 Pain in unspecified joint
CPT/HCPCS: 36415; 80048; 83036; 84443; 85025; 85652; 86140; 86430; 86431

== ENCOUNTER 2024-03-19 08:05 | Outpatient (OUT) | payer OTHER, SELFPAY ==
--- OUTSIDE RECORDS SUMMARY | 2024-03-19 08:10 | XMS_ITS | CCD ---
Author Organization [facility] Care Team Providers Care Junior Account Manager Name Role Phone Clark, Froilan S Unavailable [...] available Unavailable, Family Physician Unavailable Un available DR KAROL CLEMENT Admitting Unavailable URBANO, DR KAROL Elder Attending Unavailable URBANO, DR KAROL Elder Primary Care Unavailable DR KAROL CLEMENT Admitting Unavailable URBANO, DR KAROL Elder Attending Unavailable URBANO, DR KAROL Elder Primary Care Unavailable Karol Clement Unavailable Mihaela Toro Unavailable Kelly Costa Unavailable Karol Clement MD Primary Care Provider [phone] ROMANA SANTANA Attending Unavailable ROMANA SANTANA Referring Unavailable KAROL CLEMENT Primary Care Unavailable ROMANA SANTANA Attending Unavailable KAROL CLEMENT Referring Unavailable KAROL CLEMENT Primary Care Unavailable ROMANA SANTANA Attending Unavailable KAROL CLEMENT Referring Unavailable KAROL CLEMENT Primary Care Unavailable DALE BETANCOURT Admitting Unavailable DALE BETANCOURT Attending Unavailable KAROL CLEMENT Referring Unavailable KAROL CLEMENT Primary Care Unavailable MIRNA Wilson Attending Provider MD Karol Clement Primary Care Provider MD Karol Clement Attending Provider [phone] Karol Clement Attending Unavailable Karol Clement Primary Care Unavailable Karol Clement Admitting Unavailable Marci Wilson Attending Unavailable Marci Wilson Admitting Unavailable Allergies Allergy Classification Reported Allergen(s) Allergy Type Date of Onset Reaction(s) Facility (13 sources) Mushroom (edible) Propensity to adverse reactions Unknown sl[facility]et [facility] [employer] Other (13 sources) Shellfish Propensity to adverse reactions Unknown sl[facility]et [facility] [employer] Other (13 sources) [place] Propensity to adverse reactions Unknown [employer] Other (13 sources) HUMALON KWIK PEN Propensity to adverse reactions rash sl[facility]et [facility] [employer] Other (10 sources) Allergies Reconciled Propensity to adverse reactions Unknown slinkset [facility] [employer] Other (14 sources) Shellfish; Translations: [SHELLFISH DERIVED] Propensity to adverse reactions to drug 3 [facility] (13 sources) strawberry allergenic extract; Translations: [STRAWBERRY] Drug Allergy 3 [facility] (2 sources) Other; Translations: [OTHER] Propensity to adverse reactions 3 [facility] (3 sources) Insulin Lispro Drug Allergy 4 [facility] (12 sources) Mushroom (edible); Translations: [mushroom] Allergy to substance 4 [facility] (9 sources) pioglitazone; Translations: [pioglitazone] Drug Allergy 4 [facility] (1 source) strawberry allergenic extract Drug Allergy [address] [place] [address] Repository Medications Current Medications Medication Drug Class(es) Dates Sig (Normalized) Sig (Original) albuterol 0.83 mg/ml inhalation solution (20 sources) beta2-Adrenergic Agonist Start: 01-07-2024 End: 01-09-2024 take 2.5 mg by inhalation four times daily Albuterol Sulfate Active 2.5 MG INHALATION Four times daily 180 January 09, 2024 8:53am Start: 09-30-2023 End: 01-01-2024 take 2 puff(s) by inhalation every four hours as needed Albuterol Sulfate Active 0 .ROUTE .COMPLEX 25.5 January 01, 2024 9:08am INHALE 2 PUFFS INTO THE LUNGS EVERY 4 HOURS NEEDED FOR 90 DAYS Start: 05-28-2023 End: 09-30-2023 Albuterol Sulfate Discontinu ed 2 PUFF INHALATION every 6 to 8 hours May 28, 2023 10:05am September 30, 2023 8:26am Start: 05-27-2023 End: 05-28-2023 Albuterol Sulfate Discontinu ed INHALATION May 27, 2023 1:00am May 28, 2023 10:09am take 2 puff(s) by in halation every six hours as needed for wheezing albuterol (PROVENTIL HFA;VENTOLIN HFA) 90 mcg/actuation inhaler Inhale 2 puffs every 6 (six) hours as needed for wheezing. 0 Active Albuterol Sulfat e (2.5 MG/3ML) 0.083% 3 ml Inhalation Three [...] beclomethasone dipropionate 0.08 mg/actuat metered dose inhaler (20 sources) Corticosteroid Start: 05-28-2023 take 80 ug by inhalation twice daily Beclomethasone Dipropionate (Qvar Redihaler) 80 mcg/actuation HFA aerosol breath activated Active 2 INH INHALATION Twice daily May 28, 2023 10:05am Start: 05-27-2023 End: 05-28-2023 Beclomethasone Dipropionate (Qvar Redihaler) 80 mcg/actuation HFA aerosol breath activated Discontinued INHALATION May 27, 2023 1:00am May 28, 2023 10:09am Start: 02-23-2018 take 2 puff(s) by in halation twice daily Qvar RediHaler 80 MCG/ACT 2 puffs Inhalation Twice a day for 90 days Jan, Active take 2 puff(s) by in halation in the morning beclomethasone HFA (QVAR REDIHALER) 80 mcg/actuation inhaler Inhale 2 puffs in the morning and 2 puffs before bedtime. 0 Active Benadryl Allergy 25 MG (2 sources) take 1 tablet by mouth at bedtime Benadryl Allergy 25 MG 1 tab Orally HS Active brexpiprazole 0.5 mg oral tablet (7 sources) Atypical Antipsychotic Start: 04-17-19 24 take 1 tablet by mouth every twenty-four hours Rexulti 0.5 MG 1 tablet Orally Once a day for 30 day(s) Mar, Active cetirizine hydrochloride 10 mg oral tablet (6 sources) Histamine-1 Receptor Antagonist take 1 tablet by mouth every twenty-four hours Cetirizine HCl 10 MG 1 tablet Orally Once a day otc Active dextromethorphan hydrobromide 15 mg / guaiFENesin 400 mg / pseudoephedrine hydrochloride 60 mg oral tablet (5 sources) alpha-Adrenergic Agonist, Uncompetitive J-mtrvmj-D-aspartate Receptor Antagonist, Sigma-1 Agonist Start: 09-15-19 take 1 tablet by mouth every six hours as needed for cough Capmist DM 60-15-400 MG 1 tablet Orally q6hrs prn congestion/cough for 7 days Aug, Active diphenhydrAMINE hydrochloride 25 mg oral tablet (11 sources) Histamine-1 Receptor Antagonist take 1 tablet by mouth at bedtime Benadryl Allergy 25 MG 1 tab Orally HS Active Dulaglutide (Trulicity) 3 mg/0.5 mL pen injector (20 sources) Start: 12-03-19 Dulaglutide (Trulicity) 3 mg/0.5 mL pen injector Active 3 MG SUBCUT every week 2.5 December 03, 2023 9:40am ok to dispense 1.5 mg if 3.0 mg unavailable Start: 08-27-2023 End: 12-03-2023 Dulaglutide (Trulicity) 3 mg /0.5 mL pen injector Discontinued 3 MG SUBCUT every week 2.5 August 27, 2023 2:44pm December 03, 2023 10:13am ok to dispense 1.5 mg if 3.0 mg unavailable Start: 08-27-2023 Dulaglutide (T rulicity) 3 mg/0.5 mL pen injector Active 3 MG SUBCUT every week 2.5 August 27, 2023 2:44pm ok to dispense 1.5 mg if 3.0 mg unavailable Start: 08-27-2023 End: 08-27-2023 Dulaglutide (Trulicity) 3 mg /0.5 mL pen injector Discontinued 3 MG SUBCUT every week August 27, 2023 2:12pm August 27, 2023 2:45pm Start: 05-27-2023 End: 08-27-2023 Dulaglutide (Trulicity) 3 mg /0.5 mL pen injector Discontinued MG SUBCUT May 27, 2023 1:00am August 27, 2023 2:17pm Start: 05-27-2023 Dulaglutide (T rulicity) 3 mg/0.5 mL pen injector Active MG SUBCUT May 27, 2023 1:00am DULoxetine 60 mg delayed release oral capsule (20 sources) Serotonin and Norepinephrine Reuptake Inhibitor Start: 01-01-2024 take 1 capsule by mouth once daily Duloxetine Active 0 .ROUTE .COMPLEX 90 January 01, 2024 9:08am TAKE 1 CAPSULE BY MOUTH EVERY DAY Start: 10-08-2023 End: 01-01-2024 take 60 mg by mouth once daily Duloxetine Discontinued 60 MG PO Daily October 08, 2023 10:54am January 01, 2024 9:08am Start: 09-30-2023 End: 10-08-2023 take 1 capsule by mouth once daily Duloxetine Discontinued 0 .ROUTE .COMPLEX 90 September 30, 2023 8:25am October 08, 2023 10:56am TAKE 1 CAPSULE BY MOUTH EVERY DAY Start: 05-27-2023 End: 05-28-2023 Duloxetine Discontinued MG P O May 27, 2023 1:00am May 28, 2023 10:09am Start: 02-03-2023 End: 09-30-2023 take 60 mg by mouth once daily Duloxetine Discontinued 60 MG PO Daily May 28, 2023 10:04am September 30, 2023 8:26am estrogens, conjugated (correction) 0.625 mg/ml vaginal cream (20 sources) Estrogen Start: 05-27-2023 End: 08-27-2023 Conjugated Estrogens (Premarin) 0.625 mg/gram cream Active 0.625 MG VAGINAL 3 Times a week August 27, 2023 2:12pm Premarin 0.625 M G/GM _insert 1 GRAM VAGINALLY 3 TIMES A WEEK for 90 Active Premarin 0.625 M G/GM _insert 1 GRAM VAGINALLY 3 TIMES A WEEK for 90 Active Premarin 0.625 M G/GM as directed Vaginal Not-Taking fenofibrate 160 mg oral tablet (20 sources) Peroxisome Proliferator Receptor alpha Agonist Start: 12-23-2022 take 160 mg by mouth once daily Fenofibrate Active 160 MG PO Daily May 27, 2023 1:00am Flash Glucose Scanning Alvin (Freestyle Deidre 2 Alvin) [facility] (20 sources) Start: 06-09-2023 Flash Glucose Scanning Alvin (Freestyle Deidre 2 Alvin) [facility] Active 0 .ROUTE .COMPLEX 1 June 09, 2023 1:06pm DIRECTED TO TEST BLOOD SUGAR DAILY 365 DAYS Start: 05-27-2023 End: 06-09-2023 Flash Glucose Scanning Reade r (Freestyle Deidre 2 Alvin) [facility] Discontinued EACH .ROUTE .MEDSUPPLY May 27, 2023 1:00am June 09, 2023 1:07pm As directed Flash Glucose Sensor (Freest yle Deidre 2 Sensor) kit (17 sources) Start: 10-10-2023 Flash Glucose Sensor (Freestyle Deidre 2 Sensor) kit Active EACH .ROUTE .MEDSUPPLY 6 October 10, 2023 6:05am As directed change every 14 days Start: 05-27-2023 End: 10-10-2023 Flash Glucose Sensor (Freest yle Deidre 2 Sensor) kit Discontinued EACH .ROUTE .MEDSUPPLY May 27, 2023 1:00am October 10, 2023 6:11am As directed Start: 05-27-2023 Flash Glucose Sensor (Freestyle Deidre 2 Sensor) kit Active EACH .ROUTE .MEDSUPPLY May 27, 2023 1:00am As directed FreeStyle Deidre 2 Alvin - (4 sources) Start: 04-21-2023 FreeStyle Libr e 2 Alvin - as directed to test blood sugar daily for 365 days Mar, Active FreeStyle Deidre 2 Sensor - (13 sources) FreeStyle Deidre 2 Sensor - USE DIRECTED for 28 Active FreeStyle Deidre 2 Sensor - USE DIRECTED for 28 Not-Taking insulin glargine 100 unt/ml injectable solution (13 sources) Insulin Analog inject 15 [IU] by subcutaneous injection once daily Lantus 100 UNIT/ML 15 unit Subcutaneous daily for 30 days Active Lantus SoloStar 100 UNIT/ML 30units Subcutaneous 1 inearly morning for 90 day(s) dx: E11.65 Not-Taking Insulin Glargine-Yfgn (Semglee(Insulin Glarg-Yfgn)Pen) 100 unit/mL (3 mL) insulin pen (20 sources) Start: 01-28-2024 inject 6 [IU] by subcutaneous injection once daily Insulin Glargine-Yfgn (Semglee(Insulin Glarg-Yfgn)Pen) 100 unit/mL (3 mL) insulin pen Active 6 UNIT SUBCUT Daily January 28, 2024 9:16am Start: 01-02-2024 End: 01-28-2024 inject 5 [IU] by subcutaneous injection once daily Insulin Glargine-Yfgn (Semglee(Insulin Glarg-Yfgn)Pen) 100 unit/mL (3 mL) insulin pen Discontinued 5 UNIT SUBCUT Daily January 02, 2024 1:46pm January 28, 2024 9:20am Start: 01-02-2024 inject 5 [IU] by sub cutaneous injection once daily Insulin Glargine-Yfgn (Semglee(Insulin Glarg-Yfgn)Pen) 100 unit/mL (3 mL) insulin pen Active 5 UNIT SUBCUT Daily January 02, 2024 1:46pm Start: 12-03-2023 End: 01-02-2024 inject 5 [IU] by subcutaneous injection once daily Insulin Glargine-Yfgn (Semglee(Insulin Glarg-Yfgn)Pen) 100 unit/mL (3 mL) insulin pen Discontinued 5 UNIT SUBCUT Daily December 03, 2023 10:14am January 02, 2024 1:47pm Start: 12-03-2023 inject 5 [IU] by sub cutaneous injection once daily Insulin Glargine-Yfgn (Semglee(Insulin Glarg-Yfgn)Pen) 100 unit/mL (3 mL) insulin pen Active 5 UNIT SUBCUT Daily December 03, 2023 10:14am Start: 09-10-2023 End: 12-03-2023 Insulin Glargine-Yfgn (Semglee(Insulin Glarg-Yfgn)Pen) 100 unit/mL (3 mL) insulin pen Discontinued 30 UNIT SUBCUT Daily September 10, 2023 1:22pm December 03, 2023 9:28am expect up to 50 u per day Start: 09-10-2023 Insulin Glargi ne-Yfgn (Semglee(Insulin Glarg-Yfgn)Pen) 100 unit/mL (3 mL) insulin pen Active 30 UNIT SUBCUT Daily September 10, 2023 1:22pm expect up to 50 u per day Start: 07-22-2023 End: 09-10-2023 Insulin Glargine-Yfgn (Semglee(Insulin Glarg-Yfgn)Pen) 100 unit/mL (3 mL) insulin pen Discontinued 30 UNIT SUBCUT Daily July 22, 2023 1:59pm September 10, 2023 1:23pm Start: 07-22-2023 Insulin Glargi ne-Yfgn (Semglee(Insulin Glarg-Yfgn)Pen) 100 unit/mL (3 mL) insulin pen Active 30 UNIT SUBCUT Daily July 22, 2023 1:59pm Start: 05-27-2023 End: 07-22-2023 Insulin Glargine-Yfgn (Semglee(Insulin Glarg-Yfgn)Pen) 100 unit/mL (3 mL) insulin pen Discontinued 15 UNIT SUBCUT Daily May 27, 2023 1:00am July 22, 2023 2:12pm Start: 05-27-2023 Insulin Glargi ne-Yfgn (Semglee(Insulin Glarg-Yfgn)Pen) 100 unit/mL (3 mL) insulin pen Active 15 UNIT SUBCUT Daily May 27, 2023 1:00am Insulin Lispro (Humalog U-100 Insulin) 100 unit/mL solution (6 sources) Start: 10-23-2023 inject 70 [IU] by subcutaneous injection once daily Insulin Lispro (Humalog U-100 Insulin) 100 unit/mL solution Active 0 SUBCUT Use as Directed October 23, 2023 12:00am Use with V-Go 30. Expect up to 70 units per day subcutaneously use as directed; Methylprednisolone (14 sources) Corticosteroid Start: 01-07-2024 Methylprednisolone Active 0 PO per package directions January 07, 2024 12:00am PO PER PKG DIR for 6 days Start: 06-16-2023 End: 08-27-2023 Methylprednisolone Discontin ued 0 PO per package directions June 16, 2023 12:00am August 27, 2023 2:16pm PO PER PKG DIR for 6 days Start: 06-16-2023 Methylpredniso lone Active 0 PO per package directions June 16, 2023 12:00am PO PER PKG DIR for 6 days 24 hr metoprolol succinate 25 mg extended release oral tablet (20 sources) beta-Adrenergic Leola Start: 01-01-2024 take 1 tablet by mouth once daily Metoprolol Succinate Active 0 .ROUTE .COMPLEX January 01, 2024 9:08am TAKE 1 TABLET BY MOUTH EVERY DAY Start: 05-27-2023 End: 01-01-2024 take 25 mg by mouth once daily Metoprolol Succinate Di scontinued 25 MG PO Daily May 27, 2023 1:00am January 01, 2024 9:08am Start: 12-30-2022 take 1 tablet by delores th every twenty-four hours in the morning metoprolol succinate XL (TOPROL XL) 25 mg 24 hr tablet Take 1 tablet (25 mg total) by mouth in the morning. 0 12/30/2022 Active take 1 tablet by delores th once daily Metoprolol Succinate ER 25 MG TAKE 1 TABLET BY MOUTH EVERY DAY for Active montelukast 10 mg oral tablet (20 sources) Leukotriene Receptor Antagonist Start: 12-04-2023 End: 12-12-2023 take 1 tablet by mouth once daily Montelukast Active 0 .ROUTE .COMPLEX December 12, 2023 8:19am TAKE 1 TABLET BY MOUTH EVERY DAY Start: 10-08-2023 End: 12-04-2023 take 10 mg by mouth once daily Montelukast Discontinue d 10 MG PO Daily October 08, 2023 10:56am December 04, 2023 11:17am Start: 06-09-2023 End: 10-08-2023 take 1 tablet by mouth once daily Montelukast Discontinued 0 .ROUTE .COMPLEX June 09, 2023 1:06pm October 08, 2023 10:56am TAKE 1 TABLET BY MOUTH EVERY DAY Start: 07-11-2022 End: 06-09-2023 take 10 mg by mouth once daily Montelukast Discontinue d 10 MG PO Daily May 28, 2023 1:00am June 09, 2023 1:07pm multivit-minerals/folic acid (DIABETIC MULTIVITAMIN ORAL) (1 source) multivit-mineral s/folic acid (DIABETIC MULTIVITAMIN ORAL) Take by mouth. 0 Active Multivitamin Women - (13 sources) Multivitamin Wom en - Orally Active naproxen sodium 220 mg oral tablet (13 sources) Nonsteroidal Anti-inflammator y Drug take 2 tablets by mouth every twelve hours as needed Aleve 220 MG 2 tabs Orally every 12 hrs prn Active omeprazole 40 mg delayed release oral capsule (6 sources) Proton Pump Inhibitor take 1 capsule by mouth once daily Omeprazole 40 MG TAKE 1 CAPSULE BY MOUTH EVERY DAY for 90 Active predniSONE 20 mg oral tablet (5 sources) Sta rt: 3 predniSONE 20 MG Take 3 tabs daily x 3 days, then take 2 tabs daily x 3 days, then take 1 tab daily x 3 days. Orally Once a day for 9 days Aug, Active ProAir HFA 108 (90 Base) MCG/ACT (13 sources) take 2 puff(s) by inhalation every four hours as needed ProAir HFA 108 (90 Base) MCG/ACT 2 puffs as needed Inhalation every 4 hrs for 90 days Active Sub-Q Insulin Device, 30 Unit (V-Go 30) device (6 sources) Sta rt: 4 Sub-Q Insulin Device, 30 Unit (V-Go 30) device Active 0 .ROUTE .MEDSUPPLY October 08, 2023 12:00am one VGO sq every 24 hours as directed traZODone hydrochloride 150 mg oral tablet (20 sources) Serotonin Reuptake Inhibitor Sta rt: 4 take 1 tablet by mouth once daily at bedtime Trazodone Active 0 .ROUTE .COMPLEX October 21, 2023 10:40am TAKE 1 TABLET BY MOUTH EVERYDAY AT BEDTIME Start: 02-02-2023 End: 10-21-2023 take 150 mg by mouth once daily Trazodone Discontinued 150 MG PO Daily May 27, 2023 1:00am October 21, 2023 10:40am vits A,C,E/lutein/zeax/zn/co pp (EYE HEALTH FORMULA ORAL) (1 source) vits A,C,E/lutei n/zeax/zn/dago (EYE HEALTH FORMULA ORAL) Take by mouth. 0 Active Completed/Discontinued Medications Medication Drug Class(es) Dates Sig (Normalized) Sig (Original) 0.5 ml dulaglutide 3 mg/ml auto-injector (20 sources) GLP-1 Receptor Agonist Start: 01-07-2024 End: 01-07-2024 Dulaglutide (Trulicity) 1.5 mg/0.5 mL pen injector Discontinued 1.5 MG SUBCUT every week January 07, 2024 12:00am January 07, 2024 8:39am Start: 05-28-2023 End: 06-16-2023 Dulaglutide (Trulicity) 1.5 mg/0.5 mL pen injector Discontinued 3 MG SUBCUT every week May 28, 2023 10:03am June 16, 2023 10:46am Start: 02-13-2023 End: 05-28-2023 Dulaglutide (Trulicity) 1.5 mg/0.5 mL pen injector Discontinued 1.5 MG SUBCUT every week May 27, 2023 1:00am May 28, 2023 10:09am erythromycin 0.005 mg/mg ophthalmic ointment (6 sources) Macrolide, Macrolide Antimicrobial Start: 11-13-2019 Erythromycin 5 MG/GM 1 cm ribbon Ophthalmic Four times a day for 7 days Oct, Not-Taking FreeStyle Deidre Alvin (6 sources) FreeStyle Deidre Alvin check blood sugar for DM type 2 with hyperglycemia E11.65 monitor glucose 6 times a day for 14 days Not-Taking 3 ml insulin aspart, human 100 unt/ml pen injector (11 sources) Insulin Analog Start: 05-28-2023 End: 07-22-2023 Insulin Aspart (Niacinamide) (Fiasp Flextouch U-100 Insulin) 100 unit/mL (3 mL) insulin pen Discontinued 0 SUBCUT Use as Directed May 28, 2023 1:00am July 22, 2023 1:38pm ICR 1:15, ISS 1:50 QID subcutaneously use as directed; Corrective scale AC/HS 1:50, QID. Expect up to 30 u per day Insulin Lispro (Humalog Kwikpen Insulin) 100 unit/mL insulin pen (17 sources) Start: 08-01-2023 End: 12-03-2023 Insulin Lispro (Humalog Kwikpen Insulin) 100 unit/mL insulin pen Discontinued 0 SUBCUT Use as Directed August 01, 2023 12:33pm December 03, 2023 9:29am ICR 1:15 and ISS 1:50, expect up to 50 u per day subcutaneously use as directed; Start: 08-01-2023 Insulin Lispro (Humalog Kwikpen Insulin) 100 unit/mL insulin pen Active 0 SUBCUT Use as Directed August 01, 2023 12:33pm ICR 1:15 and ISS 1:50, expect up to 50 u per day subcutaneously use as directed; Start: 07-22-2023 End: 08-01-2023 Insulin Lispro (Humalog Kwik pen Insulin) 100 unit/mL insulin pen Discontinued 1 sliding scale dose SUBCUT Use as Directed July 22, 2023 12:00am August 01, 2023 12:37pm Start: 07-22-2023 Insulin Lispro (Humalog Kwikpen Insulin) 100 unit/mL insulin pen Active 1 sliding scale dose SUBCUT Use as Directed July 22, 2023 12:00am metFORMIN hydrochloride 1000 mg oral tablet (6 sources) Biguanide take 1 tablet by mouth twice daily at lunch metFORMIN HCl 1000 mg 1 tablet with lunch and supper Orally bid for 90 days Not-Taking pantoprazole 40 mg delayed release oral tablet (20 sources) Proton Pump Inhibitor Start: End: Pantoprazole Discontinued MG PO May 27, 2023 1:00am May 28, 2023 10:09am Start: 01-23-2023 End: 01-01-2024 take 40 mg by mouth once daily Pantoprazole Discontinu ed 40 MG PO Daily May 28, 2023 10:06am January 01, 2024 9:08am pioglitazone 15 mg oral tablet (20 sources) Peroxisome Proliferator Receptor alpha Agonist, Peroxisome Proliferator Receptor gamma Agonist, Thiazolidinedione Start: 06-12-2023 End: 07-22-2023 take 15 mg by mouth once daily Pioglitazone Discontinued 15 MG PO Daily June 12, 2023 12:28pm July 22, 2023 1:39pm Start: 06-09-2023 End: 06-12-2023 take 1 tablet by mouth once daily Pioglitazone Discontinued 0 .ROUTE .COMPLEX June 09, 2023 1:06pm June 12, 2023 12:28pm TAKE 1 TABLET BY MOUTH EVERY DAY FOR 30 DAYS Start: 05-27-2023 End: 06-09-2023 take 15 mg by mouth once daily Pioglitazone Discontinu ed 15 MG PO Daily May 27, 2023 1:00am June 09, 2023 1:07pm Start: 04-16-2023 take 1 tablet by delores th every twenty-four hours Pioglitazone HCl 15 MG 1 tablet Orally Once a day for 30 day(s) Mar, Active pravastatin sodium 20 mg oral tablet (6 sources) HMG-CoA Reductase Inhibitor Start: 04-29-2017 take 1 tablet by mouth every twenty-four hours Pravastatin Sodium 20 MG 1 tablet Orally Once a day for 90 day(s) Mar, Not-Taking traMADol hydrochloride 50 mg oral tablet (20 sources) Opioid Agonist Start: 07-22-2023 End: 12-02-2023 take 50 mg by mouth once daily Tramadol Discontinued 50 MG PO Daily September 09, 2023 9:14am December 02, 2023 1:15pm Start: 05-27-2023 End: 07-22-2023 take 50 mg by mouth three times daily Tramadol Discontinued 50 MG PO Three times daily May 27, 2023 1:00am July 22, 2023 2:12pm Start: 04-17-2023 take 1 tablet by delores th three times daily as needed traMADol HCl 50 MG 1 tablet as needed Orally tid prn for 7 days Mar, Active Start: 01-23-2023 take 1 tablet by delores th three times daily as needed traMADol HCl 50 MG 1 tablet as needed Orally tid prn for 7 days Dec, Active Problems Active Problems Problem Classification Problem Date Documented Da te Episodic/Chronic Administrative/social admission (20 sources) Patient encounter status; Translations: [Dietary counseling and surveillance] 08-27-2023 Episodic Allergic reactions (10 sources) Allergic reaction; Translations: [Other allergy, initial encounter] Episodic Anxiety disorders (13 sources) Anxiety about body function or health; Translations: [Other specified anxiety disorders] Chronic Asthma (20 sources) Asthma; Translations: [Unspecified asthma, uncomplicated] Onset: 01-27-2024 Chronic Cardiac dysrhythmias (10 sources) Tachycardia; Translations: [Tachycardia, unspecified] Episodic Diabetes mellitus with complications (20 sources) Hyperglycemia due to type 2 diabetes mellitus; Translations: [Type 2 diabetes mellitus with hyperglycemia] Onset: 12-03-2023 Chronic Diabetes mellitus without complication (20 sources) Diabetes mellitus without complication; Translations: [Type 2 diabetes mellitus without complications] Chronic Disorders of lipid metabolism (20 sources) Pure hypercholesterolemia ; Translations: [Pure hypercholesterolemia , unspecified] 05-27-2023 Chronic Esophageal disorders (20 sources) Ulcerative esophagitis; Translations: [Ulcer of esophagus without bleeding] Chronic Essential hypertension (20 sources) Hypertensive disorder; Translations: [Essential (primary) hypertension] Chronic Malaise and fatigue (7 sources) Fatigue; Translations: [Other fatigue] Onset: 01-27-2024 01-07-2024 Episodic Menopausal disorders (10 sources) Atrophic vaginitis; Translations: [Postmenopausal atrophic vaginitis] Chronic Miscellaneous mental health disorders (11 sources) Anxiety about body function or health; Translations: [Other symptoms and signs involving emotional state] 05-27-2023 Episodic Mood disorders (20 sources) Recurrent major depressive episodes, moderate ; Translations: [Major depressive disorder, recurrent, moderate] Chronic Other aftercare (20 sources) Long-term current use of insulin; Translations: [prison (current) use of insulin] 05-27-2023 Episodic Other aftercare (8 sources) prison (current) use of insulin; Translations: [Long-term (current) use of insulin] 08-27-2023 Episodic Other circulatory disease (10 sources) Elevated blood-pressure reading without diagnosis of hypertension; Translations: [Elevated blood-pressure reading, without diagnosis of hypertension] Episodic Other gastrointestinal disorders (13 sources) Dysphagia; Translations: [Dysphagia, unspecified] Episodic Other nervous system disorders (20 sources) Polyneuropathy; Translations: [Polyneuropathy, unspecified] 05-27-2023 Chronic Other nervous system disorders (8 sources) Polyneuropathy, unspecified; Translations: [Unspecified hereditary and idiopathic peripheral neuropathy] 08-27-2023 Chronic Other nervous system disorders (1 source) Tremor, unspecified Episodic Other non-traumatic joint disorders (1 source) Pain in unspecified joint Episodic Other nutritional; endocrine; and metabolic disorders (20 sources) Body mass index 30+ - obesity; Translations: [Body mass index (BMI) 37.0-37.9, adult] Chronic Other nutritional; endocrine; and metabolic disorders (20 sources) Morbid obesity; Translations: [Morbid (severe) obesity due to excess calories] 05-27-2023 Chronic Other nutritional; endocrine; and metabolic disorders (20 sources) Obese class I; Translations: [Body mass index (BMI) 33.0-33.9, adult] Chronic Other screening for suspected conditions (not mental disorders or infectious disease) (1 source) Encounter for screening mammogram for malignant neoplasm of breast Episodic Other upper respiratory infections (1 source) Acute upper respiratory infection, unspecified Episodic Residual codes; unclassified (20 sources) Obstructive sleep apnea syndrome; Translations: [Obstructive sleep apnea (adult) (pediatric)] 05-27-2023 Chronic Residual codes; unclassified (10 sources) Obstructive sleep apnea (adult) (pediatric); Translations: [Obstructive sleep apnea (adult)(pediatric)] 08-27-2023 Chronic Residual codes; unclassified (20 sources) Insomnia; Translations: [Insomnia, unspecified] 05-27-2023 Episodic Spondylosis; intervertebral disc disorders; other back problems (2 sources) Herniation of nucleus pulposus of lumbar intervertebral disc; Translations: [Other intervertebral disc displacement, lumbar region] Onset: 05-27-2023 05-27-2023 Chronic Spondylosis; intervertebral disc disorders; other back problems (20 sources) Spinal stenosis of lumbar region; Translations: [Spinal stenosis, lumbar region without neurogenic claudication] Onset: 06-20-2023 Episodic Past or Other Problems Problem Classification Problem Date Documented Da te Episodic/Chronic Unclassified (1 source) Lumbar pain M54.50 Unclassified (1 source) Contact with and (suspected) exposure to covid-19 Z20.822 Results Test Name Value Interpretation Reference Range Facility Automated basophil %Ordered By: Karol Clement on 01-27-2024 Basophils/100 WBC (Bld) 0.7 % Normal . [facility] Comment on above: Performed By: #### T SH3 wRFLX, BMP, CBC #### [address] Automated basophil countOrde red By: Karol Clement on 01-27-2024 Basophils (Bld) [#/Vol] 0.1 10*3/uL Normal 0.0-0.2 [facility] Comment on above: Result Comment: PERF ORMED BY: [place] [address] PATHOLOGIST [employer]HE[employer] RAMÓN LAWRENCE M.D. Performed By: #### T SH3 wRFLX, BMP, CBC #### [address] Automated blood monocyte cou ntOrdered By: Karol Clement on 01-27-2024 Monocytes (Bld) [#/Vol] 0.5 10*3/uL Normal 0.0-0.8 [facility] Comment on above: Performed By: #### T SH3 wRFLX, BMP, CBC #### [address] Automated eosinophil %Ordere d By: Karol Clement on 01-27-2024 Eosinophils/100 WBC (Bld) 0.9 % Normal . [facility] Comment on above: Performed By: #### T SH3 wRFLX, BMP, CBC #### [address] Automated eosinophil countOr dered By: Karol Clement on 01-27-2024 Eosinophils (Bld) [#/Vol] 0.1 10*3/uL Normal 0.0-0.45 [facility] Comment on above: Performed By: #### T SH3 wRFLX, BMP, CBC #### [address] Automated monocyte %Ordered By: Karol Clement on 01-27-2024 Monocytes/100 WBC (Bld) 5.1 % Normal . [facility] Comment on above: Performed By: #### T SH3 wRFLX, BMP, CBC #### [address] Automated neutrophil %Ordere d By: Karol Clement on 01-27-2024 Neutrophils/100 WBC (Bld) 53.0 % Normal . [facility] Comment on above: Performed By: #### T SH3 wRFLX, BMP, CBC #### [place] [address] [place] Basic Metabolic Panelon 12-30 GFR/1.73 sq M.predicted MDRD (S/P/Bld) [Vol rate/Area] mL/min/{1.73_m2} Normal [facility] Comment on above: Performed By: #### T SH3 wRFLX, BMP, CBC #### [facility] [address] [place] [address] [place] Calcium [Mass/volume] in Ser um or PlasmaOrdered By: Karol Clement on 01-27-2024 Calcium [Mass/Vol] 10.5 mg/dL High 8.6-10.3 [facility] Comment on above: Performed By: #### T SH3 wRFLX, BMP, CBC #### [address] Carbon dioxide, total [Moles /volume] in Serum or PlasmaOrdered By: Karol Clement on 01-27-2024 CO2 [Moles/Vol] 29.9 mmol/L Normal 21.0-31.0 [facility] Comment on above: Performed By: #### T SH3 wRFLX, BMP, CBC #### [address] Chloride [Moles/volume] in S tim or PlasmaOrdered By: Karol Clement on 01-27-2024 Chloride [Moles/Vol] 100 mmol/L Normal 98-107 [facility] Comment on above: Performed By: #### T SH3 wRFLX, BMP, CBC #### [facility] [address] [place] [address] Complete Blood Count Auto Di ffon 01-27-2024 Mean Corpuscular HGB Conc 34.0 g/dL Normal 32.0-35.0 [facility] Comment on above: Performed By: #### T SH3 wRFLX, BMP, CBC #### [address] NRBC% 0.1 /100{WBC} Normal 0-0.5 [facility] Comment on above: Performed By: #### T SH3 wRFLX, BMP, CBC #### [facility] [address] Creatinine [Mass/volume] in Serum or PlasmaOrdered By: Karol Clement on 01-27-2024 Creatinine [Mass/Vol] 0.63 mg/dL Normal 0.60-1.20 [facility] Comment on above: Performed By: #### T SH3 wRFLX, BMP, CBC #### [facility] [address] Erythrocyte distribution wid th [Ratio] by Automated countOrdered By: Karol Clement on 01-27-2024 Erythrocyte distribution width (RBC) [Ratio] 13.2 % Normal 11.9-15.3 [facility] Comment on above: Performed By: #### T SH3 wRFLX, BMP, CBC #### [facility] [address] Erythrocytes [#/volume] in B lood by Automated countOrdered By: Karol Clement on 01-27-2024 RBC (Bld) [#/Vol] 4.83 10*6/uL Normal 3.60-5.00 [facility] Comment on above: Performed By: #### T SH3 wRFLX, BMP, CBC #### [address] Glucose [Mass/volume] in Ser um or PlasmaOrdered By: Karol Clement on 01-27-2024 Glucose [Mass/Vol] 231 mg/dL High 70-100 [facility] Comment on above: ADA recommended refe rence rangeRandom Glucose Reference Range is dependent on time and content of last meal. Glucose of more than 200 mg/dL in a nonstressed, ambulatory subject supports the diagnosis of Diabetes Mellitus. Result Comment: [place] om Glucose Reference Range is dependent on time and content of last meal. Glucose of more than 200 mg/dL in a nonstressed, ambulatory subject supports the diagnosis of Diabetes Mellitus. ADA recommended reference range Performed By: #### T SH3 wRFLX, BMP, CBC #### [facility] [address] [place] [address] [place] Hematocrit [Volume Fraction] of Blood by Automated countOrdered By: Karol Clement on 01-27-2024 Hematocrit (Bld) [Volume fraction] 42.1 % Normal 34.0-46.4 [facility] Comment on above: Performed By: #### T SH3 LorraineFLX, BMP, CBC #### [facility] [address] [place] [address] Hemoglobin [Mass/volume] in BloodOrdered By: Karol Clement on 01-27-2024 Hemoglobin (Bld) [Mass/Vol] 14.3 g/dL Normal 11.8-15.4 [facility] Comment on above: Performed By: #### T SH3 wRFLX, BMP, CBC #### [facility] [address] [place] [address] Leukocytes [#/volume] correc bethanie for nucleated erythrocytes in Blood by Automated counOrdered By: Karol Clement on 01-27-2024 WBC corrected for nucl RBC Auto (Bld) [#/Vol] 9.4 10*3/uL 3.8-11.6 [facility] Leukocytes [#/volume] in Blo od by Automated countOrdered By: Karol Clement on 01-27-2024 WBC (Bld) [#/Vol] 9.4 10*3/uL Normal 3.8-11.6 [facility] Comment on above: Performed By: #### T SH3 wRFLX, BMP, CBC #### [facility] [address] [place] [address] [place] Lymphocytes [#/volume] in Bl ood by Automated countOrdered By: Karol Clement on 01-27-2024 Lymphocytes (Bld) [#/Vol] 3.8 10*3/uL Normal 1.00-4.8 [facility] Comment on above: Performed By: #### T SH3 wRFLX, BMP, CBC #### [facility] [address] [place] [address] [place] Lymphocytes/100 leukocytes i n Blood by Automated countOrdered By: Karol Clement on 01-27-2024 Lymphocytes/100 WBC (Bld) 40.3 % Normal . [facility] Comment on above: Performed By: #### T SH3 wRFLX, BMP, CBC #### [facility] [address] MCH [Entitic mass] by Automa bethanie countOrdered By: Karol Clement on 01-27-2024 MCH (RBC) [Entitic mass] 29.7 pg Normal 24.7-34.3 [facility] Comment on above: Performed By: #### T SH3 wRFLX, BMP, CBC #### [facility] [address] [place] [address] MCHC Auto (RBC) [Mass/Vol]Or dered By: Karol Clement on 01-27-2024 MCHC (RBC) [Mass/Vol] 34.0 g/dL 32.0-35.0 [facility] MCV [Entitic volume] by Auto mated countOrdered By: Karol Clemnet on 01-27-2024 MCV (RBC) [Entitic vol] 87.3 fL Normal 80-100 [facility] Comment on above: Performed By: #### T SH3 wRFLX, BMP, CBC #### [facility] [address] [place] [address] Neutrophils [#/volume] in Bl ood by Automated countOrdered By: Karol Clement on 01-27-2024 Neutrophils (Bld) [#/Vol] 5.0 10*3/uL Normal 1.8-7.7 [facility] Comment on above: Performed By: #### T SH3 wRFLX, BMP, CBC #### [facility] [address] [place] [address] No Panel InformationOrdered By: Karol Clement on 01-27-2024 Estimated GFR (CKD-EPI) > 60.0 mL/Min [facility] Creatinine Clearance (Chem N/A [facility] Nucleated erythrocytes [Pres ence] in Blood by Automated countOrdered By: Karol Clement on 01-27-2024 Nucleated RBC Auto Ql (Bld) 0.1 /100{WBC} 0-0.5 [facility] Platelet mean volume [Entiti c volume] in Blood by Automated countOrdered By: Karol Clement on 01-27-2024 Platelet mean volume (Bld) [Entitic vol] 7.9 fL Normal 6.3-10.7 [facility] Comment on above: Performed By: #### T SH3 wRFLX, BMP, CBC #### [facility] [address] [place] [address] [place] Platelets [#/volume] in Bloo d by Automated countOrdered By: Karol Clement on 01-27-2024 Platelets (Bld) [#/Vol] 385 10*3/uL Normal 150-450 [facility] Comment on above: Performed By: #### T SH3 LorraineFLX BMP, CBC #### [facility] [address] Potassium [Moles/volume] in Serum or PlasmaOrdered By: Karol Clement on 01-27-2024 Potassium [Moles/Vol] 4.6 mmol/L Normal 3.5-5.1 [facility] Comment on above: Performed By: #### T SH3 LorraineFLXISADORA, CBC #### [facility] [address] Serum or plasma anion gap de terminationOrdered By: Karol Clement on 01-27-2024 Anion gap [Moles/Vol] 12.7 mmol/L Normal 6.0-15.0 [facility] Comment on above: Performed By: #### T SH3 LorraineFLXISADORA, CBC #### [facility] [address] Sodium [Moles/volume] in Ser um or PlasmaOrdered By: Karol Clement on 01-27-2024 Sodium [Moles/Vol] 138 mmol/L Normal 136-145 [facility] Comment on above: Performed By: #### T SH3 wRFLX, BMP, CBC #### [facility] [address] Thyroid Stim Hormone w/Rflxo n 01-27-2024 Thyroid Stim Hormone w/Rflx 0.89 u[iU]/mL Normal 0.45-5.33 [facility] Comment on above: Result Comment: PERF ORMED BY: [place] [address] PATHOLOGIST [employer] BUIL[employer] RAMÓN LAWRENCE M.D. Performed By: #### T SH3 wRFLX, BMP, CBC #### [facility] [address] [place] [address] Thyrotropin [Units/volume] i n Serum or PlasmaOrdered By: Karol Clement on 01-27-2024 TSH Qn 0.89 m[IU]/L 0.45-5.33 [facility] Urea nitrogen [Mass/volume] in Serum or PlasmaOrdered By: Karol Clement on 01-27-2024 Urea nitrogen [Mass/Vol] 15 mg/dL Normal 7-25 [facility] Comment on above: Performed By: #### T SH3 wRFLX, BMP, CBC #### [address] XR chest 2V*on 01-27-2024 XR chest 2V* [facility] [place] [address] [place] [address] XRay Report Signed Patient: Reyna Oconnor MR#: [id number] : 1970 Acct:[id number] Age/Sex: 53 / F ADM Date: 01/27/24 Loc: RT Room: Type: [facility] Attending Dr: Karol Clement MD Copies to: Karol Clement MD Ordering Provider: Karol Clement MD Date of Service: 01/27/24 XR/XR chest 2V*: J45.909 - Unspecified asthma, uncomplicated PA AND LATERAL CHEST: CLINICAL HISTORY: Cough, chest tightness, shortness of breath. History of asthma. COMPARISON: 04/25/2017 There is no focal parenchymal consolidation, effusion or pneumothorax. The cardiac, hilar and mediastinal silhouettes are within normal limits. There is no vascular congestion. The visualized bony thorax is intact. Mild endplate spurring is present at the spine. XR/XR chest 2V* IMPRESSION: NO ACUTE CARDIOPULMONARY ABNORMALITY. Impression dictated by: Krissy Glynn M.D.01/27/2024 12:57 PM Dictation Location: [facility]- Transcribed By: [facility] 01/27/24 1257 Dictated By: Krissy Glynn MD 01/27/24 1256 Signed By: 01/27/24 1257 Normal [facility] Creatinine [Mass/volume] in UrineOrdered By: Marci Wilson on 12-03-2023 Creatinine (U) [Mass/Vol] 85.00 mg/dL [facility] Comment on above: No reference range e stablished HbA1c HPLC (Bld) [Mass fract ion]on 12-03-2023 HbA1c (Bld) [Mass fraction] 9.6 % [facility] MicroAlb Creat Ratio,Uon Creatinine, Urine (Random) 85.00 mg/dL Normal [facility] Comment on above: Result Comment: No r eference range established Performed By: #### U RMACRERAT #### [facility] [address] [place] [address] Microalbumin/Creatinin e Ratio Not performed Normal 0.0-30.0 [facility] Comment on above: Result Comment: PERF ORMED BY: [place] [address] PATHOLOGIST [employer]HE[employer] BUIL[employer] RAMÓN LAWRENCE M.D. Performed By: #### U RMACRERAT #### [facility] [address] [place] [address] Microalbumin [Mass/volume] i n UrineOrdered By: Marci Wlison on 12-03-2023 Albumin DL <= 20 mg/L (U) [Mass/Vol] mg/dL Normal 0.0-1.8 [facility] Comment on above: Performed By: #### U RMACRERAT #### [facility] [address] [place] [address] No Panel Informationon 12-02 Bedside Glucose 223 [facility] Urine microalbumin/creatinin e mass ratioOrdered By: Marci Wilson on 12-03-2023 Albumin/Creatinine DL <= 20 mg/L (U) [Mass ratio] TNP [facility] Comment on above: Test not performed No Panel Informationon 10-07 Bedside Glucose 296 [facility] HbA1c HPLC (Bld) [Mass fract ion]on 08-27-2023 HbA1c (Bld) [Mass fraction] 8.9 % [facility] No Panel Informationon 08-26 Bedside Glucose 179 [facility] MR LUMBAR SPINE WO CONTon MR LUMBAR SPINE WO CONT MR LUMBAR SPINE WO CONT MR LUMBAR SPINE WO CONT HISTORY: Lumbar radiculopathy. Pain. COMPARISON: None TECHNIQUE: Multisequence, multiplanar images of the lumbar spine without intravenous contrast. FINDINGS: Near-complete osseous fusion of L4-5 and L5-S1. Intervertebral disc height loss and disc desiccation at L3-4. Intervertebral disc space narrowing and slight disc bulge at L3-L4, above the L4-S1 ankylosis. No suspicious marrow signal changes. Conus medullaris terminates at L1-L2. No distal cord signal abnormality. Cauda equina nerve roots are unremarkable. L1-L2: No significant spinal canal or neural foraminal narrowing. L2-L3: No significant spinal canal or neural foraminal narrowing. L3-L4: Mild to moderate diffuse disc bulge, mild facet arthropathy without significant spinal canal narrowing. [id number]-[id number] left greater than right neuroforaminal narrowing. L4-L5: Minimal facet arthropathy with mild bilateral neuroforaminal narrowing. No significant spinal canal narrowing. L5-S1: Minimal facet arthropathy with mild bilateral neuroforaminal narrowing. No significant spinal canal narrowing. IMPRESSION: * Ankylosis of L4-S1 with hdih-lg-[id number] degenerative changes above this fusion (at L3-L4, where there is mild to moderate, left greater than right neuroforaminal narrowing). Approved by Resident Bhanu Atwood MD on 06/23/2023 10:08 AM Sedrick Juan have personally reviewed the image(s) and agree with and/or edited the report Finalized by Sedrick Nunez on 06/23/2023 5:[address] [facility] No Panel Informationon 05-28 Bedside Glucose 342 [facility] Laboratory - Chemistry and C hemistry - challengeon 04-16-2023 Calcium [Mass/Vol] 9.5 mg/dL [facility] Chloride [Moles/Vol] 98 mmol/L [facility] CO2 [Moles/Vol] 27.2 mmol/L [facility] Creatinine [Mass/Vol] 0.64 mg/dL [facility] Glucose [Mass/Vol] 370 mg/dL [facility] Potassium [Moles/Vol] 4.5 mmol/L [facility] Sodium [Moles/Vol] 137 mmol/L [facility] Urea nitrogen [Mass/Vol] 10.0 mg/dL [facility] - Hematology and Cell countson 04-16-2023 HbA1c (Bld) [Mass fraction] 12.3 % [facility] No Panel Informationon 04-16 Thyroid Stimulating Hormone 3rd Gen 0.89 [facility] Estimated GFR (Non- > 60 mL/min [facility] RHEUMATOID FACTORon 04-16-19 24 RHEUMATOID FACTOR see note [facility] [employer] Other RHEUMATOID FACTOR <10.0 IU/mL <14.0 IU/mL [employer] Other COVID + FLU Quick Testingon 09-14-2022 SARS-CoV-2 (COVID-19) RNA BEVERLY+probe Ql (Unsp spec) Negative slinkset [facility] [employer] Other COVID + FLU Quick Testing Negative slinkset [facility] [employer] Other BASIC MET PANELon 06-14-2017 Anion gap 12 mmol/L Normal 6-18 [facility] Comment on above: Performed By: #### L 391.77470 ####Test performed at: [place] [address] [place] [address] Calcium 8.8 mg/dL Normal 8.5-10.1 [facility] Comment on above: Performed By: #### L 667.25040 ####Test performed at: [place] [address] [place] [address] Chloride 106 mmol/L Normal 98-107 [facility] Comment on above: Performed By: #### L 757.52786 ####Test performed at: [place] [address] [place] [address] CO2 27 mmol/L Normal 21-32 [facility] Comment on above: Performed By: #### L 500.01548 ####Test performed at: [address] [address] Creatinine 0.523 mg/dL Low 0.550-1.02 0 [facility] Comment on above: Performed By: #### L 500.20501 ####Test performed at: [address] [address] Glucose mass conc 198 mg/dL High 74-106 [facility] Comment on above: Performed By: #### L 500.66598 ####Test performed at: [address] [address] OSM 296 mosm/kg Normal 270-300 [facility] Comment on above: Performed By: #### L 500.32841 ####Test performed at: [address] [address] Potassium molar conc 4.2 mmol/L Normal 3.5-5.1 [facility] Comment on above: Performed By: #### L 500.24756 ####Test performed at: [address] [address] Sodium 141 mmol/L Normal 136-145 [facility] Comment on above: Performed By: #### L 500.04364 ####Test performed at: [address] [address] Urea nitrogen 7 mg/dL Normal 7-18 [facility] Comment on above: Performed By: #### L 500.46037 ####Test performed at: [address] [address] GFR ESTIMATEon 06-14-2017 IF AMER > 60 Normal > 60 [facility] Comment on above: Result Comment: eGFR (Estimated GFR) Units of measure:mL/min/1.73 meters sq.*CALCULATION REVISED 01/17/2015;IDMS-traceable MDRD equationeGFR is derived from the reexpressed MDRD Study equationusing the following parameters: serum creatinine, age,gender and race. An eGFR<60 mL/min/1.73m2 for >3 monthsis consistent with chronic kidney disease. [facility]. Performed By: #### L 500.27984 ####Test performed at: [place] [address] IF non-AFR AMER > 60 Normal > 60 [facility] Comment on above: Performed By: #### L 500.95990 ####Test performed at: [place] [address] GLUCOSE METERon 06-14-2017 Glucose mass conc 181 mg/dL High 70-110 [facility] Comment on above: Result Comment: Insu buddy per sl scale Performed By: #### L 500.89443 ####Test performed at: [place] [id number] Glucose mass conc 240 mg/dL High 70-110 [facility] Comment on above: Result Comment: Insu buddy per sl scale Performed By: #### L 500.86467 ####Test performed at: [place] [id number] HGB AND HCTon 06-14-2017 Hematocrit (HCT) 36.1 % Normal 36.0-48.0 [facility] Comment on above: Performed By: #### L 500.60779 ####Test performed at: [place] [address] Hemoglobin mass conc (Bld) 12.3 g/dL Invalid Interpretation Code 12.0-15.0 [facility] Comment on above: Result Comment: Delt a: 14.3 on 06/06/17-1308 Performed By: #### L 500.01392 ####Test performed at: [address] [address] GLUCOSE METERon 06-13-2017 Glucose mass conc 222 mg/dL High 70-110 [facility] Comment on above: Result Comment: Foll ow protocol Performed By: #### L 500.86395 ####Test performed at: [address] [address] Glucose mass conc 160 mg/dL High 70-110 [facility] Comment on above: Result Comment: Foll ow protocol Performed By: #### L 500.03982 ####Test performed at: [address] [address] Glucose mass conc 123 mg/dL High 70-110 [facility] Comment on above: Result Comment: Phys ician notifiedFollow protocol Performed By: #### L 500.59816 ####Test performed at: [place] [id number] OPERATIVE REPORTon 8 OPERATIVE REPORT NAME: SILVIA OCONNOR EMR#: [id number]: Nagi Mas, MDDATE OF SURGERY: 06/13/2017OPERATIVE REPORTPREOPERATIVE DIAGNOSIS: Laminal [...] in excellent condition, and there were nocomplications. __LEXI AGUILAR. [facility] PT NAME: JUNIOR OCONNOR#: [id number] [place] [address] ACCT: [id number]: 66OPERATIVE REPORTJFS/MODL/[id number]: 06/13/2017 14:19:57 E/S: Nagi Mas MD07/01/17 1329Electronically SignedSIER[facility] NAME: JUNIOR OCONNOR#: [id number] [place] [address] ACCT: [id number]: [birth year]OPERATIVE REPORT Normal [facility] LUMBAR SPINE 2 OR 3 VIEWSon 06-12-2017 LUMBAR SPINE 2 OR 3 VIEWS Exam: Fluoroscopy lumbar spineClinical History: LEFT L3-L4 LAMINECTOMY, FORAMINOTOMY, DECOMPRESSIONComparison: None.Findings: Intraoperative fluoroscopic images demonstrate surgicalinstruments posterior to L3-4.Impression:As aboveDictated: 06/13/17 1446REPORT SIGNATURE ON FILE06/13/17(3829) Reported By: KALYANI VELASQUEZSigned By: KALYANI VELASQUEZ Normal [facility] CBC W/DIFFon 06-06-2017 BASO ABS 0.1 K/uL Normal 0.0-0.2 [facility] Comment on above: Order Comment: CBN: YESCampus: MAIN Performed By: #### L 200.87048 ####Test performed at: [address] [address] Basophils/100 WBC Auto (Bld) 0.9 % Normal [facility] Comment on above: Order Comment: CBN: YESCampus: MAIN Performed By: #### L 200.22453 ####Test performed at: [address] [address] EOS ABS 0.0 K/uL Normal 0.0-0.5 [facility] Comment on above: Order Comment: CBN: YESCampus: MAIN Performed By: #### L 200.44710 ####Test performed at: [address] [address] Eosinophils/100 leukocytes 0.3 % Normal [facility] Comment on above: Order Comment: CBN: YESCampus: MAIN Performed By: #### L 200.93568 ####Test performed at: [address] [address] [address] Erythrocyte distribution width Auto Ratio (RBC) 12.2 % Normal 11.5-14.5 [facility] Comment on above: Order Comment: CBN: YESCampus: MAIN Performed By: #### L 200.80009 ####Test performed at: [place] [address] Erythrocytes (RBC) 4.87 10*6/uL Normal 3.5-5.5 [facility] Comment on above: Order Comment: CBN: YESCampus: MAIN Performed By: #### L 200.31240 ####Test performed at: [place] [address] Erythrocytes (RBC) 0.000 10*6/uL Normal 0-0.012 [facility] Comment on above: Order Comment: CBN: YESCampus: MAIN Performed By: #### L 200.78575 ####Test performed at: [place] [address] Hematocrit (HCT) 42.2 % Normal 36.0-48.0 [facility] Comment on above: Order Comment: CBN: YESCampus: MAIN Performed By: #### L 200.44540 ####Test performed at: [place] [address] Hemoglobin mass conc (Bld) 14.3 g/dL Normal 12.0-15.0 [facility] Comment on above: Order Comment: CBN: YESCampus: MAIN Performed By: #### L 200.81990 ####Test performed at: [place] [address] IG % 0.3 % Normal [facility] Comment on above: Order Comment: CBN: YESCampus: MAIN Performed By: #### L 200.79207 ####Test performed at: [place] [address] IG ABS 0.03 K/uL Normal 0-0.05 [facility] Comment on above: Order Comment: CBN: YESCampus: MAIN Performed By: #### L 200.45885 ####Test performed at: [address] [address] Lymphocytes 3.7 10*3/uL High 1.2-3.5 [facility] Comment on above: Order Comment: CBN: YESCampus: MAIN Performed By: #### L 200.57587 ####Test performed at: [place] [address] Lymphocytes/100 leukocytes 40.3 % Normal [facility] Comment on above: Order Comment: CBN: YESCampus: MAIN Performed By: #### L 200.66736 ####Test performed at: [place] [address] MCH 29.4 pg Normal 25.4-34.6 [facility] Comment on above: Order Comment: CBN: YESCampus: MAIN Performed By: #### L 200.26703 ####Test performed at: [place] [id number] MCHC mass conc (RBC) 33.9 g/dL Normal 31.5-36.5 [facility] Comment on above: Order Comment: CBN: YESCampus: MAIN Performed By: #### L 200.88988 ####Test performed at: [place] [address] MCV 86.7 fL Normal 79.0-98.0 [facility] Comment on above: Order Comment: CBN: YESCampus: MAIN Performed By: #### L 200.28711 ####Test performed at: [place] [id number] MONO ABS 0.5 K/uL Normal 0.0-1.0 [facility] Comment on above: Order Comment: CBN: YESCampus: MAIN Performed By: #### L 200.64062 ####Test performed at: [place] [address] Monocytes/100 leukocytes 5.8 % Normal [facility] Comment on above: Order Comment: CBN: YESCampus: MAIN Performed By: #### L 200.19459 ####Test performed at: [address] [address] Neutrophils 4.8 10*3/uL Normal 1.4-6.6 [facility] Comment on above: Order Comment: CBN: YESCampus: MAIN Performed By: #### L 200.46241 ####Test performed at: [address] [address] Neutrophils/100 WBC Auto (Bld) 52.4 % Normal [facility] Comment on above: Order Comment: CBN: YESCampus: MAIN Performed By: #### L 200.18080 ####Test performed at: [address] [address] NRBC % 0.0 /100 WBC Normal 0-0.2 [facility] Comment on above: Order Comment: CBN: YESCampus: MAIN Performed By: #### L 200.27383 ####Test performed at: [address] [address] Platelet mean volume (PMV) 9.8 fL Normal 8.7-12.4 [facility] Comment on above: Order Comment: CBN: YESCampus: MAIN Performed By: #### L 200.95335 ####Test performed at: [address] [address] Platelets 344 10*3/uL Normal 140-440 [facility] Comment on above: Order Comment: CBN: YESCampus: MAIN Performed By: #### L 200.39561 ####Test performed at: [address] [address] WBC (Leukocytes) 9.2 10*3/uL Normal 3.9-11.0 [facility] Comment on above: Order Comment: CBN: YESCampus: MAIN Performed By: #### L 200.11753 ####Test performed at: [place] [address] PROTIMEon 06-06-2017 INR Coag RelTime (PPP) 0.97 {INR} Normal 0.00-1.20 [facility] Comment on above: Order Comment: CBN: YESCampus: MAINList patient's anticoagulants for PT: NONE SPECIFIEDList patient's anticoagulant for PTT: NONE SPECIFIED Result Comment: Jeremiah mmended therapeutic range is an INR of 2.0-3.0 exceptfor prevention of recurrent acute UT and mechanicalprosthetic heart valve where an INR of 2.5-3.5 isrecommended. Performed By: #### L 300.47528, L300.99756 ####Test performed at: [place] [address] PT SEC 10.3 seconds Normal 9.7-11.5 [facility] Comment on above: Order Comment: CBN: YESCampus: MAINList patient's anticoagulants for PT: NONE SPECIFIEDList patient's anticoagulant for PTT: NONE SPECIFIED Performed By: #### L 300.90754, L300.80120 ####Test performed at: [place] [address] PTTon 06-06-2017 aPTT 26.1 s Normal 22.8-32.5 [facility] Comment on above: Order Comment: CBN: YESCampus: MAINList patient's anticoagulants for PT: NONE SPECIFIEDList patient's anticoagulant for PTT: NONE SPECIFIED Performed By: #### L 300.13634, L300.40446 ####Test performed at: [place] [address] TSPATon 06-06-2017 ANTIBODY SCREEN Negative Normal [facility] Comment on above: Order Comment: CBN: YESCampus: MAINTransfusion Status: CONSERVATIONBlood Bank service requested: TYPE AND SCREENSpecimen Comment: SURG 06/13 Performed By: #### B 100.0201 ####Test performed at: [place] [id number] BLOOD TYPE Positive Normal [facility] Comment on above: Order Comment: CBN: YESCampus: MAINTransfusion Status: CONSERVATIONBlood Bank service requested: TYPE AND SCREENSpecimen Comment: SURG 06/13 Performed By: #### B 100.0201 ####Test performed at: [address] [address] MRI LUMBAR SP WO CONTRASTon 04-09-2017 MRI LUMBAR SP WO CONTRAST STUDY:MRI LUMBAR SP WO CONTRAST; 04/09/2017 9:25 amINDICATION:POST LAMI SYNDROME, OA, LBP, LLE PARESTHESIA.COMPARISON:Ra diographs March 18, 2017ACCESSION NUMBER(S):[id number] RDERING CLINICIAN:Froilan Guzman:Sagittal and axial T1 and T2 weighted images of the lumbar spine wereacquired. Sagittal STIR images were also submitted for review.FINDINGS:Alignment : The vertebral alignment is maintained.Vertebrae/Inte rvertebral Discs: The vertebral bodies demonstrateexpected height.There has [...] slight posterior displacement of the exiting left [id number] root.L4-5: The patient is status post fusion. There is minimalencroachment on the right neural foramen due to hypertrophic endplatespurring. There is no significant central canal stenosis.L5-S1: The patient is status post fusion. There is mild hypertrophicendplate spurring slightly impressing on the ventral thecal sac.There is also mild encroachment on the neural foramina but no centralcanal stenosis.The prevertebral and posterior paraspinous soft tissues areunremarkable.IMPRESSIO N:1. Status post fusion from L4 through S1.2. Degenerative changes primarily involving L3/4. Normal [facility] CBC W/DIFFon 03-18-2017 BASO ABS 0.1 K/uL Normal 0.0-0.2 [facility] Comment on above: Order Comment: CBN: YESCampus: MAIN Performed By: #### L 200.11248, L200.53389 ####Test performed at: [address] [address] Basophils/100 WBC Auto (Bld) 0.9 % Normal [facility] Comment on above: Order Comment: CBN: YESCampus: MAIN Performed By: #### L 200.26038, L200.11107 ####Test performed at: [address] [address] EOS ABS 0.2 K/uL Normal 0.0-0.5 [facility] Comment on above: Order Comment: CBN: YESCampus: MAIN Performed By: #### L 200.10931, L200.45233 ####Test performed at: [address] [address] Eosinophils/100 leukocytes 2.2 % Normal [facility] Comment on above: Order Comment: CBN: YESCampus: MAIN Performed By: #### L 200.09178, L200.84313 ####Test performed at: [address] [address] Erythrocyte distribution width Auto Ratio (RBC) 12.6 % Normal 11.5-14.5 [facility] Comment on above: Order Comment: CBN: YESCampus: MAIN Performed By: #### L 200.03058, L200.30926 ####Test performed at: [address] [address] Erythrocytes (RBC) 4.60 10*6/uL Normal 3.5-5.5 [facility] Comment on above: Order Comment: CBN: YESCampus: MAIN Performed By: #### L 200.66401, L200.49378 ####Test performed at: [address] [address] Erythrocytes (RBC) 0.000 10*6/uL Normal 0-0.012 [facility] Comment on above: Order Comment: CBN: YESCampus: MAIN Performed By: #### L 200.25448, L200.30696 ####Test performed at: [address] [address] Hematocrit (HCT) 39.7 % Normal 36.0-48.0 [facility] Comment on above: Order Comment: CBN: YESCampus: MAIN Performed By: #### L 200.70144, L200.77026 ####Test performed at: [address] [address] Hemoglobin mass conc (Bld) 13.5 g/dL Normal 12.0-15.0 [facility] Comment on above: Order Comment: CBN: YESCampus: MAIN Performed By: #### L 200.21081, L200.65266 ####Test performed at: [address] [address] IG % 1.0 % Normal [facility] Comment on above: Order Comment: CBN: YESCampus: MAIN Performed By: #### L 200.96736, L200.40628 ####Test performed at: [place] [id number] IG ABS 0.09 K/uL High 0-0.05 [facility] Comment on above: Order Comment: CBN: YESCampus: MAIN Performed By: #### L 200.54213, L200.63768 ####Test performed at: [place] [id number] Lymphocytes 3.3 10*3/uL Normal 1.2-3.5 [facility] Comment on above: Order Comment: CBN: YESCampus: MAIN Performed By: #### L 200.14172, L200.81570 ####Test performed at: [place] [address] Lymphocytes/100 leukocytes 38.1 % Normal [facility] Comment on above: Order Comment: CBN: YESCampus: MAIN Performed By: #### L 200.66644, L200.30857 ####Test performed at: [place] [address] MCH 29.3 pg Normal 25.4-34.6 [facility] Comment on above: Order Comment: CBN: YESCampus: MAIN Performed By: #### L 200.46220, L200.95387 ####Test performed at: [address] [address] MCHC mass conc (RBC) 34.0 g/dL Normal 31.5-36.5 [facility] Comment on above: Order Comment: CBN: YESCampus: MAIN Performed By: #### L 200.62118, L200.66245 ####Test performed at: [place] [id number] MCV 86.3 fL Normal 79.0-98.0 [facility] Comment on above: Order Comment: CBN: YESCampus: MAIN Performed By: #### L 200.31191, L200.07239 ####Test performed at: [place] [id number] MONO ABS 0.5 K/uL Normal 0.0-1.0 [facility] Comment on above: Order Comment: CBN: YESCampus: MAIN Performed By: #### L 200.80751, L200.66166 ####Test performed at: [address] [address] Monocytes/100 leukocytes 5.3 % Normal [facility] Comment on above: Order Comment: CBN: YESCampus: MAIN Performed By: #### L 200.22751, L200.68552 ####Test performed at: [address] [address] Neutrophils 4.6 10*3/uL Normal 1.4-6.6 [facility] Comment on above: Order Comment: CBN: YESCampus: MAIN Performed By: #### L 200.28350, L200.11234 ####Test performed at: [address] [address] Neutrophils/100 WBC Auto (Bld) 52.5 % Normal [facility] Comment on above: Order Comment: CBN: YESCampus: MAIN Performed By: #### L 200.84619, L200.22790 ####Test performed at: [address] [address] NRBC % 0.0 /100 WBC Normal 0-0.2 [facility] Comment on above: Order Comment: CBN: YESCampus: MAIN Performed By: #### L 200.87450, L200.37309 ####Test performed at: [address] [address] Platelet mean volume (PMV) 10.4 fL Normal 8.7-12.4 [facility] Comment on above: Order Comment: CBN: YESCampus: MAIN Performed By: #### L 200.09309, L200.35870 ####Test performed at: [address] [address] Platelets 331 10*3/uL Normal 140-440 [facility] Comment on above: Order Comment: CBN: YESCampus: MAIN Performed By: #### L 200.47848, L200.36445 ####Test performed at: [address] [address] WBC (Leukocytes) 8.7 10*3/uL Normal 3.9-11.0 [facility] Comment on above: Order Comment: CBN: YESCampus: MAIN Performed By: #### L 200.56329, L200.72108 ####Test performed at: [address] [address] CRPon 03-18-2017 C reactive protein (CRP) mg/L Normal 0.0-3.0 [facility] Comment on above: Order Comment: CBN: YESCampus: MAIN Performed By: #### L 500.38150 ####Test performed at: [address] [address] LUMB SP COMP W FLEX/EXT 6 VW Son 03-18-2017 LUMB SP COMP W FLEX/EXT 6 VWS STUDY:LUMB SP COMP W FLEX/EXT 6 VWS ; 03/18/2017 9:37 amINDICATION:. Back painCOMPARISON:None.ACCES DEVYN NUMBER(S):[id number] [facility] CLINICIAN:Froilan Dalton:There is solid osseous interbody fusion from L4-S1. There are milddegenerative changes of the upper lumbar spine. Mild dextroscoliosiscentered at L3. No spondylolisthesis. No instability on extension orflexion. No pars defects are identified.IMPRESSION:Oss eous interbody fusion from L4-S1. Degenerative changes of thelumbar spine without instability. Normal [facility] RA FACTOR QUANTon 03-18-2017 RA FACTOR QUANT < 10 Normal <15 [facility] Comment on above: Order Comment: CBN: YESCampus: MAIN Performed By: #### L 700.14127 ####Test performed at: [address] [address] WSR/MODon 03-18-2017 WSR/MOD 21 mm/hr High 0-20 [facility] Comment on above: Order Comment: CBN: YESCampus: MAIN Performed By: #### L 200.54208, L200.10323 ####Test performed at: [address] [address] Vital Signs Date Time Vital Sign Value Performing Clinician Facility 01-28-2024 09:11-0400 Body height 160.02 cm MD Karol Clement Work Phone: [facility] 01-28-2024 09:11-0400 Body mass index (BMI) [Ratio] 34.9 kg/m2 MD Karol Clement Work Phone: [facility] 01-28-2024 09:11-0400 Body weight 89.44 kg MD Karol Clement Work Phone: [facility] 01-28-2024 09:11-0400 Diastolic blood pressure 83 mm[Hg] MD Karol Clement Work Phone: [facility] 01-28-2024 09:11-0400 Heart rate 100 /min MD Karol Clement Work Phone: [facility] 01-28-2024 09:11-0400 Respiratory rate 18 /min MD Karol Clement Work Phone: [facility] 01-28-2024 09:11-0400 SaO2% (BldA) [Mass fraction] 96 % MD Karol Clement Work Phone: [facility] 01-28-2024 09:11-0400 Systolic blood pressure 124 mm[Hg] MD Karol Clement Work Phone: [facility] 01-07-2024 07:50-0400 Body height 160.02 cm CROZER Marci Scally Work Phone: [facility] 01-07-2024 07:50-0400 Body mass index (BMI) [Ratio] 34.7 kg/m2 CROZER Marci Scally Work Phone: [facility] 01-07-2024 07:50-0400 Body weight 88.9 kg CROZER Marci Scally Work Phone: [facility] 01-07-2024 07:50-0400 Diastolic blood pressure 80 mm[Hg] CROZER Marci Scally Work Phone: [facility] 01-07-2024 07:50-0400 Heart rate 91 /min CROZER Marci Scally Work Phone: [facility] 01-07-2024 07:50-0400 Respiratory rate 16 /min CROZER Marci Scally Work Phone: [facility] 01-07-2024 07:50-0400 SaO2% (BldA) [Mass fraction] 94 % CROZER Marci Scally Work Phone: [facility] 01-07-2024 07:50-0400 Systolic blood pressure 122 mm[Hg] CROZER Marci Scally Work Phone: [facility] 12-03-2023 09:16-0400 Body height 160.02 cm [facility] 12-03-2023 09:16-0400 Body mass index (BMI) [Ratio] 35.2 kg/m2 [facility] 12-03-2023 09:16-0400 Body weight 90.03 kg [facility] 12-03-2023 09:16-0400 Diastolic blood pressure 72 mm[Hg] [facility] 12-03-2023 09:16-0400 Heart rate 81 /min [facility] 12-03-2023 09:16-0400 Respiratory rate 18 /min [facility] 12-03-2023 09:16-0400 SaO2% (BldA) [Mass fraction] 96 % [facility] 12-03-2023 09:16-0400 Systolic blood pressure 106 mm[Hg] [facility] 10-08-2023 10:58-0400 Body height 160.02 cm [facility] 10-08-2023 10:58-0400 Body mass index (BMI) [Ratio] 34 kg/m2 [facility] 10-08-2023 10:58-0400 Body weight 87.25 kg [facility] 10-08-2023 10:58-0400 Diastolic blood pressure 81 mm[Hg] [facility] 10-08-2023 10:58-0400 Heart rate 94 /min [facility] 10-08-2023 10:58-0400 Respiratory rate 18 /min [facility] 10-08-2023 10:58-0400 SaO2% (BldA) [Mass fraction] 95 % [facility] 10-08-2023 10:58-0400 Systolic blood pressure 130 mm[Hg] [facility] 08-27-2023 14:18-0400 Body height 160.02 cm [facility] 08-27-2023 14:18-0400 Body mass index (BMI) [Ratio] 33.3 kg/m2 [facility] 08-27-2023 14:18-0400 Body weight 85.38 kg [facility] 08-27-2023 14:18-0400 Diastolic blood pressure 75 mm[Hg] [facility] 08-27-2023 14:18-0400 Heart rate 76 /min [facility] 08-27-2023 14:18-0400 Respiratory rate 18 /min [facility] 08-27-2023 14:18-0400 SaO2% (BldA) [Mass fraction] 98 % [facility] 08-27-2023 14:18-0400 Systolic blood pressure 125 mm[Hg] [facility] 07-22-2023 13:32-0400 Body height 160.02 cm [facility] 07-22-2023 13:32-0400 Body mass index (BMI) [Ratio] 31.8 kg/m2 [facility] 07-22-2023 13:32-0400 Body weight 81.7 kg [facility] 07-22-2023 13:32-0400 Diastolic blood pressure 80 mm[Hg] [facility] 07-22-2023 13:32-0400 Heart rate 85 /min [facility] 07-22-2023 13:32-0400 Systolic blood pressure 113 mm[Hg] [facility] 06-25-2023 10:06-0400 Body height 160.02 cm [facility] 06-16-2023 10:32-0400 Body height 159.38 cm [facility] 06-16-2023 10:32-0400 Body mass index (BMI) [Ratio] 31.8 kg/m2 [facility] 06-16-2023 10:32-0400 Body weight 80.9 kg [facility] 06-16-2023 10:32-0400 Diastolic blood pressure 86 mm[Hg] [facility] 06-16-2023 10:32-0400 Heart rate 91 /min [facility] 06-16-2023 10:32-0400 Systolic blood pressure 119 mm[Hg] [facility] 05-28-2023 09:22-0500 Body height 159.38 cm [facility] 05-28-2023 09:22-0500 Body mass index (BMI) [Ratio] 30.9 kg/m2 [facility] 05-28-2023 09:22-0500 Body weight 78.64 kg [facility] 05-28-2023 09:22-0500 Diastolic blood pressure 73 mm[Hg] [facility] 05-28-2023 09:22-0500 Heart rate 83 /min [facility] 05-28-2023 09:22-0500 Respiratory rate 18 /min [facility] 05-28-2023 09:22-0500 SaO2% (BldA) [Mass fraction] 97 % [facility] 05-28-2023 09:22-0500 Systolic blood pressure 107 mm[Hg] [facility] 05-27-2023 08:55-0500 Body height 160 cm Romana VARGAS Work Phone: [employer] 05-27-2023 08:55-0500 Body mass index (BMI) [Ratio] 30.29 kg/m2 Romana Nienberg PA Work Phone: [employer] 05-27-2023 08:55-0500 Body weight 77.56 kg Romana Jayenberg PA [facility] [employer] [facility] 05-27-2023 08:55-0500 Diastolic blood pressure 93 mm[Hg] Romana Jayenberg PA Work Phone: [employer] 05-27-2023 08:55-0500 Heart rate 96 /min Romana Jayenberg PA Work Phone: [facility] [employer] 05-27-2023 08:55-0500 Respiratory rate 18 /min Romana Jayenberg PA Work Phone: [facility] 05-27-2023 08:55-0500 SaO2% (BldA) [Mass fraction] 99 % Romana Jayenberg PA Work Phone: [facility] [employer] 05-27-2023 08:55-0500 Systolic blood pressure 115 mm[Hg] Romana Jayenberg PA Work Phone: [facility] [employer] [facility] 04-16-2023 10:45-0500 Body height 160.02 cm Karol Clement Other [facility] 04-16-2023 10:45-0500 Body mass index (BMI) [Ratio] 30.39 kg/m2 Karol Clement Other [facility] [employer] Other 04-16-2023 10:45-0500 Body weight 77.84 kg Karol Clement Other [facility] [employer] Other 04-16-2023 10:45-0500 Body weight 77.83 kg [facility] 04-16-2023 10:45-0500 Diastolic blood pressure 85 mm[Hg] Karol Clement Other [facility] 04-16-2023 10:45-0500 Systolic blood pressure 123 mm[Hg] Karol Clement Other [facility] 01-23-2023 09:00-0400 Body height 160.02 cm Karol Clement Other [facility] [employer] Other 01-23-2023 09:00-0400 Body mass index (BMI) [Ratio] 31.7 kg/m2 Karol Clement Other [facility] [employer] Other 01-23-2023 09:00-0400 Body weight 81.19 kg Karol Clement Other [employer] Other 01-23-2023 09:00-0400 Diastolic blood pressure 72 mm[Hg] Karol Clement Other [employer] Other 01-23-2023 09:00-0400 Systolic blood pressure 123 mm[Hg] Karol Clement Other [employer] Other 09-14-2022 09:20-0400 Body height 160.02 cm Mihaela Toro Other [employer] Other 09-14-2022 09:20-0400 Body mass index (BMI) [Ratio] 30.93 kg/m2 Mihaela Toro Other [employer] Other 09-14-2022 09:20-0400 Body temperature 98.5 [degF] Mihaela Toro Other [employer] Other 09-14-2022 09:20-0400 Body weight 79.2 kg Mihaela Toro Other [employer] Other 09-14-2022 09:20-0400 Diastolic blood pressure 78 mm[Hg] Mihaela Muna Other [employer] Other 09-14-2022 09:20-0400 Respiratory rate 18 /min Mihaela Conradley Other [employer] Other 09-14-2022 09:20-0400 SaO2% (BldA) [Mass fraction] 96 % Mihaela Conradley Other [employer] Other 09-14-2022 09:20-0400 Systolic blood pressure 115 mm[Hg] Mihaela Muna Other [employer] Other 07-11-2022 10:00-0400 Body height 160.02 cm Karol Clement Other [employer] Other 07-11-2022 10:00-0400 Body mass index (BMI) [Ratio] 31.53 kg/m2 Karol Clement Other [employer] Other 07-11-2022 10:00-0400 Body weight 80.74 kg Karol Clement Other [employer] Other 07-11-2022 10:00-0400 Diastolic blood pressure 80 mm[Hg] Karol Clement Other [employer] Other 07-11-2022 10:00-0400 SaO2% (BldA) [Mass fraction] 97 % Karol Clement Other [employer] Other 07-11-2022 10:00-0400 Systolic blood pressure 124 mm[Hg] Karol Clement Other [employer] Other Encounters Encounter Date Encounter Type Care Provider Facility Start: 01-28-2024 End: 01-28-2024 ambulatory MD aKrol Clement Work Phone: [facility] Work Phone: Start: 01-28-2024 End: 01-28-2024 Patient encounter procedure MD Karol Clement Work Phone: [facility] Work Phone: Start: 01-27-2024 Non-patient / Non-visit MD Taylor Clement Work Phone: [facility] Pul[facility] Work Phone: Start: 01-27-2024 End: 01-27-2024 Patient encounter procedure MD Karol Clement Work Phone: [facility] Work Phone: Start: 01-27-2024 End: 01-27-2024 ambulatory MD Karol Clement Work Phone: [facility] Work Phone: Start: 01-07-2024 End: 01-07-2024 ambulatory CROZER Marci Augustinly Work Phone: [facility] Work Phone: Start: 01-07-2024 End: 01-07-2024 Patient encounter procedure CROZER Marci Augustinly Work Phone: [facility] Work Phone: Start: 12-03-2023 End: 12-03-2023 ambulatory Marci C Scally [facility] Work Phone: Start: 12-03-2023 End: 12-03-2023 Departed Referred CROZER Marci Ruffinly Work Phone: [facility] Work Phone: Start: 12-03-2023 End: 12-03-2023 ambulatory [facility] Work Phone: Start: 12-03-2023 End: 12-03-2023 Patient encounter procedure [facility] Work Phone: Start: 10-23-2023 End: 10-23-2023 ambulatory [facility] Work Phone: Start: 10-23-2023 End: 10-23-2023 Patient encounter procedure [facility] Work Phone: Start: 10-08-2023 End: 10-08-2023 ambulatory [facility] Work Phone: Start: 10-08-2023 End: 10-08-2023 Patient encounter procedure [facility] Work Phone: Start: 08-29-2023 End: 08-29-2023 ambulatory [facility] Start: 08-27-2023 End: 08-27-2023 ambulatory [facility] Work Phone: Start: 08-27-2023 End: 08-27-2023 Patient encounter procedure [facility] Work Phone: Start: 07-22-2023 End: 07-22-2023 ambulatory [facility] Work Phone: Start: 07-22-2023 End: 07-22-2023 Patient encounter procedure [facility] Work Phone: Start: 07-17-2023 End: 07-17-2023 ambulatory [facility] Start: 06-25-2023 End: 06-25-2023 ambulatory [facility] Work Phone: Start: 06-25-2023 End: 06-25-2023 Patient encounter procedure [facility] Work Phone: Start: 06-20-2023 End: 06-20-2023 ambulatory [facility] Start: 06-16-2023 End: 06-16-2023 ambulatory [facility] Work Phone: Start: 06-16-2023 End: 06-16-2023 Patient encounter procedure [facility] Work Phone: Start: 06-09-2023 Non-patient / Non-visit [facility] Work Phone: Start: 05-28-2023 End: 05-28-2023 Patient encounter procedure [facility] Work Phone: Start: 05-27-2023 End: 05-27-[address] [facility] Start: 05-27-2023 End: 05-27-2023 Office outpatient visit 25 minutes Romana VARGAS Work Phone: [facility] Comment on above: Disc displacement, l umbar (Primary Dx); Lumbar radiculopathy, chronic Start: 04-29-2023 End: 04-29-2023 ambulatory Karol Clement Other [employer] Other Start: 04-29-2023 Telephone encounter Karol Clement [facility] Start: 04-23-2023 End: 04-23-2023 ambulatory Kelly Costa Other [facility] Other Start: 04-23-2023 Telephone encounter Kellygui Costa [facility] Start: 04-21-2023 End: 04-21-2023 ambulatory Kelly Zapatat Other [facility] [facility] [employer] Other Start: 04-21-2023 Telephone encounter Kelly Costa [facility] Start: 04-17-2023 End: 04-17-2023 ambulatory Karol Clement Other [facility] Other Start: 04-17-2023 Telephone encounter Karol Clement [facility] Start: 04-16-2023 End: 04-16-2023 ambulatory Karol Clement Other [employer] Other Start: 04-16-2023 Office outpatient vi sit 25 minutes Karol Clement [facility] Start: 04-16-2023 Non-patient / Non-visit [facility] Work Phone: Start: 04-16-2023 End: 04-16-2023 Patient encounter procedure [facility]- Start: 02-14-2023 End: 02-14-2023 ambulatory Karol Urbano Other [facility] Other Start: 02-14-2023 Telephone encounter Karol Urbano [facility] Start: 01-23-2023 End: 01-23-2023 ambulatory Karol Urbano Other [facility] Other Start: 01-23-2023 Office outpatient vi sit 15 minutes Karol Urbano [facility] Start: 01-17-2023 End: 01-17-2023 ambulatory Karol Urbano Other [facility] Other Start: 01-17-2023 Telephone encounter Karol Urbano [facility] Start: 10-04-2022 End: 10-04-2022 ambulatory Karol Clement Other [facility] Other Start: 10-04-2022 Telephone encounter Karol Urbano [facility] Start: 09-14-2022 End: 09-14-2022 ambulatory Mihaela Toro Other [facility] Other Start: 09-14-2022 Office outpatient vi sit 15 minutes Mihaela Toro [facility] Start: 07-11-2022 End: 07-11-2022 ambulatory Karol Urbano Other [facility] Other Start: 07-11-2022 Encounter for genera l adult medical examination without abnormal findings Karol Clement [facility] Start: 07-11-2022 Periodic preventive med est patient 40-64yrs Karol Clement [facility] Start: 07-10-[address] KAROL CLEMENT Facil ity:H1 Start: 12-18-[address] KAROL CLEMENT Facil ity:[facility]1 Start: 07-02-2021 Adult health examination Karol Clement Other [facility] Other Start: 06-13-2017 End: 06-14-2017 Ambulatory Nagi Mas Facility:[facility] Start: 06-13-2017 Ambulatory Facility:[id number] Start: 06-06-2017 Ambulatory Nagi Mas Facilit y:[facility] Start: 04-09-2017 Ambulatory Froilan Rodas Facility: [facility] Start: 04-09-2017 Ambulatory Facility:[id number] Start: 03-18-2017 Ambulatory [facility] Facility: [facility] Start: 03-18-2017 Ambulatory Facility:[id number] Procedures Date Procedure Procedure Detail Performing Clinician Start: 01-27-2024 Plain chest X-ray MD Zach Clement Work Phone: Screening for malign ant neoplasm of breast Karol Clement Other Plan of Treatment Date Care Activity Detail Author Start: 05-27-2024 Adult BMI Screening Adult BMI Screen ing [facility] Start: 05-27-2024 Tobacco Screening Tobacco Screening [facility] Start: 01-07-2024 Patient referral [facility] Work Phone: Start: 12-03-2023 [facility] Start: 11-29-2022 COVID-19 Vaccine ( season) COVID-19 Vaccine ( season) [facility] Start: 11-29-2022 Influenza vaccination Influenza Vacc ine [facility] Start: 2018 Administration of varicella zoster vaccine Zoster (Shingles) Vaccine (1 of 2) [facility] Start: 09-22-1987 DTaP,Tdap and Td Vac cines (1 - Tdap) DTaP,Tdap and Td Vaccines (1 - Tdap) [facility] Start: 1986 Adult BMI Follow Up Plan Adult BMI Follow Up Plan [facility] Start: 1980 Depression Screening Depression Scre ening [facility] Microalbumin/Creatin ine [Mass Ratio] in Urine [facility] End: 05-26-2024 MR Lumbar spine WO contrast MR lumbar spine without contrast Imaging Routine Lumbar radiculopathy, chronic 1 Occurrences starting 05/27/2023 until 05/26/2024 [facility] Work Phone: Comment on above: 1 Occurrences starti ng 05/27/2023 until 05/26/2024 Patient Education Low back pain in adults [facility] Work Phone: Patient referral [facility] Work Phone: [facility] Immunizations Immunization Date Immunization Notes Care Provider Fa cilitommie 07-31-2020 COVID-19 Vaccine Pfi zer - Documentation Purposes Only Karol Clement Other [facility] 07-10-2020 COVID-19 Vaccine Pfi zer - Documentation Purposes Only Karol Clement Other [facility] 01-28-2019 influenza, injectabl e, quadrivalent, preservative free Karol Clement Other [facility] 01-28-2019 influenza virus vaccine, unspecified formulation Romana VARGAS Work Phone: [facility] 02-11-2017 influenza, injectabl e, quadrivalent, preservative free Karol Clement Other [facility] 02-07-2016 influenza virus vaccine, unspecified formulation [facility] 02-07-2016 influenza, high dose seasonal, preservative-free Karol Clement Other [facility] Other Payers Date Payer Category Payer Private Health Insurance [id number] 2023 Self-pay [id number] 1970 Unknown [id number] 1970 Unknown [id number] 1968 Unknown [id number] 1968 Unknown [id number] 1968 Unknown [id number] 1968 Unknown [id number] 1959 Self-pay [id number] 1959 Unknown [id number] Private Health Insurance [employer] C [id number] PLAN [id number] Effective for all dates [phone] [address] [place] [address] [id number] Unknown [id number] Unknown [id number] Social History Date Type Detail Facility Unknown if ever smoked [facility] Other Start: 05-27-2023 Sex Assigned At [facility] Start: 02-16-2018 End: 02-18-2023 Tobacco smoking status TXIS Never smoked tobacco [facility] Start: 02-18-2023 Tobacco use and exposure Smokeless tobacco non-user [facility] Start: 05-27-2023 Alcohol intake Lifetime non-d rosalia (finding) [facility] Start: 05-27-2023 History of Social function [facility] Within the past 12 months we worried whether our food would run out before we got money to buy more. Never True [facility] Start: 1970 Sex Assigned At Not on file P [facility] Start: 1970 Sex Assigned At Female F [facility] Medical Equipment Procedure Code Equipment Code Equipment Origin al Text Equipment Identifier Dates Start: 08-15-2016 Pen Needle, Diab etic (Comfort Ez Pen [place]) 31 gauge x 5/16 needle Start: 10-08-2023 Pen Needle, Diab etic (Comfort Ez Pen [place]) 31 gauge x 5/16 needle Start: 10-08-2023 End: 10-08-2023 Pen Needle, Diab etic (Comfort Ez Pen [place]) 31 gauge x 5/16 needle Start: 10-08-2023 Pen Needle, Diab etic (Comfort Ez Pen [place]) 31 gauge x 5/16 needle Start: 10-08-2023 End: 10-08-2023 Pen Needle, Diab etic (Comfort Ez Pen [place]) 31 gauge x 5/16 needle Start: 10-08-2023 Pen Needle, Diab etic (Comfort Ez Pen [place]) 31 gauge x 5/16 needle Start: 10-08-2023 End: 10-08-2023 Pen Needle, Diab etic (Comfort Ez Pen [place]) 31 gauge x 5/16 needle Start: 10-08-2023 Pen Needle, Diab etic (Comfort Ez Pen [place]) 31 gauge x 5/16 needle Start: 10-08-2023 End: 10-08-2023 Pen Needle, Diab etic (Comfort Ez Pen [place]) 31 gauge x 5/16 needle Start: 10-08-2023 Pen Needle, Diab etic (Comfort Ez Pen [place]) 31 gauge x 5/16 needle Start: 10-08-2023 End: 10-08-2023 Pen Needle, Diab etic (Comfort Ez Pen [place]) 31 gauge x 5/16 needle Start: 10-08-2023 Pen Needle, Diab etic (Comfort Ez Pen [place]) 31 gauge x 5/16 needle Start: 10-08-2023 End: 10-08-2023 Pen Needle, Diab etic (Comfort Ez Pen [place]) 31 gauge x 5/16 needle Start: 10-08-2023 Pen Needle, Diab etic (Comfort Ez Pen [place]) 31 gauge x 5/16 needle Start: 10-08-2023 End: 10-08-2023 Clinical Notes 07-11-2022 to 01-27-2024 ALICIA Leach - 05/27/2023 8:45 AM EST Note Date & Type Note Facility 01-27-2024 Procedure note [facility] 05-27-2023 History of Present illness Narrative [facility] [address] [place] [address] Patient: Reyna Oconnor Sex: female : 1970 Age: 52 y.o. PCP: KAROL CLEMENT MD 05/27/2023 Reyna Oconnor is here for a 3 month follow up after completing Physical Therapy at the [facility] providing significant relief. Chief Complaint Patient presents with Back Pain HPI: Physical Therapy at [facility]- completed approximately 8 visits (going 2x week) with last one being end of March 2023. Insurance approved 4 more visits which she will start next week. Providing significant relief especially the Traction. Continues HEP. Physical therapy last done in 2017. Massage therapy completed every 2 weeks. Swimming provides relief. HX of numerous back surgeries Cannot tolerate Lyrica or Gabapentin Narcotics cause severe depression NSAID's cause acid reflux Back Pain This is a chronic problem. Episode onset: . The problem occurs constantly. The problem has been gradually improving (Improving with therapy) since onset. The pain is present in the lumbar spine and sacro-iliac. The quality of the pain is described as stabbing, shooting, aching, cramping and burning. Radiates to: left hips down LLE. The pain is at a severity of 7/10 (6-10/10 always have pain, some days are worse than others). The pain is moderate. The pain is The same all the time (varies depending on the activity). Exacerbated by: sitting, standing, walking, stairs, bending, lifting, twisting, pushing/pulling, cough/sneeze, transitioning. Stiffness is present All day, at night and in the morning. Associated symptoms include leg pain (LLE), numbness (left leg) and weakness (left leg). Pertinent negatives include no fever. She has tried home exercises and walking (Heat with varying relief; tylenol, capsaicin OTC topical, lidocaine patches with minimal relief; robaxin, ibuprofen, aleve, flexeril with no relief; tramadol significant but temporary relief; ice with moderate relief) for the symptoms. The effect of pain on patient's ADLS: Moderate Impairment. Past Medical History: Diagnosis Date Anxiety Asthma Chipped tooth Chronic cough CTS (carpal tunnel syndrome) Depression Diabetes (CMS-HCC) Fragility of teeth Joint pain Low back pain Numbness Osteoarthritis Sleep apnea treated with continuous positive airway pressure (CPAP) Weakness Past Surgical History: Procedure Laterality Date ANTERIOR FUSION LUMBAR SPINE 10/1999 L4/5 with fusion CARPAL TUNNEL RELEASE Right 05/2015 ESOPHAGEAL VARICE LIGATION 12/2015 HYSTERECTOMY 09/2001 LUMBAR DISCECTOMY 06/13/2017 Allergies Allergen Reactions Other FUNGUS- Hives HAY FEVER- swelling and hives Shellfish Derived Swelling [place] Swelling History reviewed. No pertinent family history. Social History Socioeconomic History Marital status: Spouse name: Not on file Number of children: Not on file Years of education: Not on file Highest education level: Not on file Occupational History Not on file Tobacco Use Smoking status: Never Smokeless tobacco: Never Vaping Use Vaping Use: Never used Substance and Sexual Activity Alcohol use: Never Drug use: Not on file Sexual activity: Not on file Other Topics Concern Not on file Social History Narrative Not on file Social Determinants of Health Financial Resource Strain: Not on file Food Insecurity: No Food Insecurity (05/27/2023) Hunger Screening Food Insecurity - Worry: Never True Food Insecurity - Inability: Never True Transportation Needs: Not on file Physical Activity: Not on file Stress: Not on file Social Connections: Not on file Interpersonal Safety: Not on file Housing Instability: Not on file Review of Systems Constitutional: Negative for chills and fever. HENT: Negative. Eyes: Negative. Respiratory: Negative. Cardiovascular: Negative. Gastrointestinal: Negative. Endocrine: Seeing support specialist because blood sugars have been out of control per patient Genitourinary: Negative. Musculoskeletal: Positive for back pain. Neurological: Positive for weakness (left leg) and numbness (left leg). Vital Signs: BP (!) 115/93 (BP Site: Right Arm, BP Postition: Sitting) Pulse 96 Resp 18 Ht 160 cm (5' 3 ) Wt 77.6 kg (171 lb) SpO2 99% BMI 30.29 kg/m Physical Exam: GENERAL - Healthy patient that appears stated age. HEENT - Normocephalic / Atraumatic, Extraoccular movements intact, trachea midline, thyroid within normal limits. CV - pulse regular, Warm extremities with appropriate color of nailbeds. RESP - No obvious wheezing, No Shortness of Breath, No overexertion response to exam maneuvers. COORDINATION - remains intact. PSYCH - Alert and Oriented x4, Attentive and appropriate, constitutionally normal, displays normal mood and affect per situation, answered questions appropriately during examination, demonstrated appropriate attention during discussion, demonstrated appropriate cognitive reasoning and understanding of the medical condition by asking appropriate questions regarding the diagnosis and risks/benefits/alternatives of treatment modalities. No obvious deficits in memory, reasoning, or intellect. Lumbar: SKIN - No rashes or bruising in the area of the patient s pain. LYMPH NODES - demonstrate no obvious enlargement. EXTREMITIES - Lower extremities are warm, with minimal edema and palpable pulses. Tenderness to palpation noted in the lumbar spine and paraspinal musculature. Pain is elicited with flexion, extension, and lateral rotation of the lumbar spine. Range of motion is diminished with these motions due to pain. Facet palpation is noted to be somewhat tender and facet loading maneuvers are mildly positive, but not concordant with the patient s normal pain complaints. STRENGTH - noted to be 5 out of 5 all muscle groups bilateral lower extremities including muscles involving hip flexion and abduction, knee flexion and extension, as well as foot dorsiflexion and plantarflexion. No notable atrophy, fasciculations or spasm. SENSORY - No notable sensory deficits in the bilateral lower extremities to touch or pinprick in all dermatomal distributions. Straight Leg Raise is Positive on the Left Gait is normal. Assessment/Treatment Plan: Reyna was seen today for back pain. Diagnoses and all orders for this visit: Disc displacement, lumbar Lumbar radiculopathy, chronic - MR lumbar spine without contrast; Future Lumbar Spine MRI - It is felt that additional diagnostic testing is necessary to further evaluate the patients current pain pathology. For this reason, we will order additional imaging noted above. It is hopeful that this study will identify a significant pain generator that will be amenable to therapy. It is felt that this modality is necessary due to the severity and chronicity of symptoms and physical exam findings combined with the lack of recent imaging of the area. An MRI is specifically felt to be necessary due to the physical exam findings noted above and the patient s description of refractory pain in a neuropathic distribution that is not relieved by change in body position and interferes with the patient s activities of daily living Follow up after MRI The medications prescribed have been reviewed for medication interactions/contraindications and/or for upcoming procedures: continue current medication regimen without any changes. DISCUSSION: Treatment options discussed with patient and all questions answered to patient's satisfaction. Discussed the rules and regulations surrounding prescription of opioids and compliance at length. Failure to follow the rules and regulation will result in tapering and discontinuation of medications if applicable. Prescribed medication that requires intensive monitoring for toxicity We do not currently prescribe any controlled substance from this practice. Treatment plans discussed but not opted for at this time: Lumbar Epidural steroid injection. Patient would like to proceed with the current outlined treatment plan before moving forward with any other options. The spine model was demonstrated and Xray was reviewed and used to explain the condition. Chronic conditions not treated during this visit that affected my overall medical decision making: Obesity, Anxiety, Depression and Diabetes OARRS: Reviewed. Scribe Statement: Scribed for and in the presence of ALICIA LEACH by Chanelle Sutherland CNA. Provider Statement: I, ALICIA LEACH, personally performed the services described in the documentation, as scribed by Chanelle Sutherland CNA in my presence, and it is both accurate and complete. Chanelle Sutherland CNA 05/27/23 0958 ALICIA Leach 05/29/23 1142 documented in this encounter [facility] 04-21-2023 Evaluation note Encounter Date Diagnosis Assessment Notes Mar, Type 2 diabetes mellitus with hyperglycemia (ICD-10 - E11.65) [facility] Other 01-17-2024 Evaluation note* Encounter Date Diagnosis Assessment Notes Treatment Notes Treatment Clinical Notes Mar, Type 2 diabetes mellitus with hyperglycemia (ICD-10 - E11.65) Refilled tralley. Later rec'd A1C which is still 12. Will trial actos as outlined in the presciption coverage letter. Discussed likely needs to return to insulin. Lantus sent in. Pt agrees to referral. Mar, Tremor, unspecified (ICD-10 - R25.1) Assess for thyroid issues or other metabolic causes. Mar, Diffuse arthralgia (ICD-10 - M25.50) Pt requests labs for inflammatory markers. Mar, HTN (hypertension) (ICD-10 - I10) Due for labs, chronic problem Mar, Major depressive disorder, recurrent, moderate (ICD-10 - F33.1) Add rexulti to cymbalta. Mar, Spinal stenosis of lumbar region with neurogenic claudication (ICD-10 - M48.062) reviewed OARRS report. Discussed pain mgmt plan and PT. [facility] Other 11-17-2023 Evaluation note* Encounter Date Diagnosis Assessment Notes Treatment Notes Treatment Clinical Notes Jan, Gastro-esophageal reflux disease without esophagitis (ICD-10 - K21.9) [facility] Other 10-26-2023 Evaluation note* Encounter Date Diagnosis Assessment Notes Treatment Notes Treatment Clinical Notes Dec, Gastro-esophageal reflux disease without esophagitis (ICD-10 - K21.9) Switch PPIs. Call if no improvement for a GI referral/EGD. Dec, Lumbar radiculopathy (ICD-10 - M54.16) Pt has not had improvement w NSAIDs. She is miserable and struggles getting out of bed or a chair. This is affecting her daily life. [facility] Other 06-17-2023 Evaluation note* Encounter Date Diagnosis Assessment Notes Treatment Notes Treatment Clinical Notes Aug, Viral URI with cough (ICD-10 - J06.9) Discussed with patient exam and history is consistent with viral upper respiratory infection. Discussed viral nature of illness and typical duration of 7 to 14 days. Advised antibiotics unfortunately do not treat viral illnesses. May use symptomatic treatment such as capmist rx. May use Tylenol/ibuprofen for any pain/fever. Follow-up with PCP if [...] (suspected) exposure to covid-19 (ICD-10 - Z20.822) [facility] Other 04-13-2023 Evaluation note* Encounter Date Diagnosis Assessment Notes Treatment Notes Treatment Clinical Notes Jun, Wellness examination (ICD-10 - Z00.00) [...] monitor results. Discussed potential referral to Pulm. [facility] Other Evaluation noteNo [employer] Other Evaluation note* Diagnosis Disc displacement, lumbar- Primary Displacement of lumbar intervertebral disc without myelopathy Lumbar radiculopathy, chronic [facility] Diagnosis Onset Date Resolution Status Type 2 diabetes mellitus with hyperglycemia [facility] Work Phone: Evaluation note* Diagnosis Onset Date Resolution Status Type 2 diabetes mellitus with hyperglycemia acute HTN (hypertension) acute Spinal stenosis acute Type 2 diabetes mellitus with hyperglycemia acute Type 2 diabetes mellitus with hyperglycemia acute [facility] Work Phone: Evaluation note* Diagnosis Onset Date Resolution Status Type 2 diabetes mellitus with hyperglycemia acute HTN (hypertension) acute Spinal stenosis acute Type 2 diabetes mellitus with hyperglycemia acute Type 2 diabetes mellitus with hyperglycemia acute Lumbar back pain with radicu lopathy affecting left lower extremity acute [facility] Work Phone: Evaluation note* Diagnosis Onset Date Resolution Status HTN (hypertension) acute Spinal stenosis acute Type 2 diabetes mellitus with hyperglycemia acute Type 2 diabetes mellitus with hyperglycemia acute Lumbar back pain with radicu lopathy affecting left lower extremity acute Type 2 diabetes mellitus with hyperglycemia acute Type 2 diabetes mellitus with hyperglycemia acute [facility] Work Phone: Evaluation note* Diagnosis Onset Date Resolution Status Lumbar back pain with radicu lopathy affecting left lower extremity acute Type 2 diabetes mellitus with hyperglycemia acute Dietary counseling and surveillance acute HTN (hypertension) acute Hypercholesterolemia 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 acute Obstructive sleep apnea acut e Polyneuropathy, unspecified acute Type 2 diabetes mellitus with hyperglycemia acute [facility] Work Phone: evaluation note* Diagnosis Onset Date Resolution Status Dietary counseling and surveillance acute HTN (hypertension) acute Hypercholesterolemia 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 acute Obstructive sleep apnea acut e Polyneuropathy, unspecified acute Type 2 diabetes mellitus with hyperglycemia acute Type 2 diabetes mellitus with hyperglycemia [facility] [facility] Work Phone: evaluation note* Diagnosis Onset Date Resolution Status Dietary counseling and surveillance acute HTN (hypertension) acute Hypercholesterolemia acute prison current use of insulin acute Obstructive sleep apnea acut e Polyneuropathy, unspecified acute Type 2 diabetes mellitus with hyperglycemia acute Type 2 diabetes mellitus with hyperglycemia acute Type 2 diabetes mellitus with hyperglycemia acute [facility] Work Phone: evaluation note* Diagnosis Onset Date Resolution Status Type 2 diabetes mellitus with hyperglycemia acute Dietary counseling and surveillance acute HTN (hypertension) acute Hypercholesterolemia 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 acute Obstructive sleep apnea acut e Polyneuropathy, unspecified acute Type 2 diabetes mellitus with hyperglycemia acute Asthma acute Fatigue acute [facility] Work Phone: evaluation note* Diagnosis Onset Date Resolution Status Dietary counseling and surveillance acute HTN (hypertension) acute Hypercholesterolemia acute prison current use of insulin acute Obstructive sleep apnea acut e Polyneuropathy, unspecified acute Type 2 diabetes mellitus with hyperglycemia acute Asthma acute Fatigue acute Obstructive sleep apnea acut e [facility] Work Phone: evaluation note* Diagnosis Onset Date Resolution Status Dietary counseling and surveillance acute HTN (hypertension) acute Hypercholesterolemia acute prison current use of insulin acute Obstructive sleep apnea acut e Polyneuropathy, unspecified acute Type 2 diabetes mellitus with hyperglycemia acute Asthma acute Fatigue acute Obstructive sleep apnea acut e Dietary counseling and surveillance acute HTN (hypertension) acute Hypercholesterolemia acute prison current use of insulin acute Obstructive sleep apnea acut e Polyneuropathy, unspecified acute Type 2 diabetes mellitus with hyperglycemia acute [facility] Work Phone: History general Narrative - Reported* Type Description Date Medical History Hiatal Hernia Medical History GERD Medical History sp Complete Hysterctomy Medical History Type 2 diabetes Medical History hypercholesterolemia Medical History asthma Medical History myalgias Medical History weight loss Medical History dyshpagia Medical History ULCERATIVE ESOPHAGITIS PER EGD 1 Medical History spinal stenosis Surgical History Total abdominal hyst erectomy bilateral salpingo-opherectomy 2004 Surgical History back surgery remote past Surgical History carpel tunnel surgery 05/2015 Surgical History esophageal stricture-Dr. Chapman ack 2015 Hospitalization History See above Hospitalization History two live births Hospitalization History back surgery [employer] Other InstructionsNot on filedocumented in this encounter [employer] Summary Purpose Family History No Family History Records Found Relationship Condition Age at Onset Recorded Date/T oneil father Diabetes mellitus Unknown Type 2 diabetes mellitus Unknown Hypertension Unknown Not Specified Hypertension Unknown Heart disease Unknown Relationship Condition Age at Onset Recorded Date/T oneil father Diabetes mellitus Unknown Type 2 diabetes mellitus Unknown Hypertension Unknown mother Hypertension Unknown Heart disease Unknown Advance Directives No Advanced Directives Records Found Advance Directive Response Recorded Date/ Time Advance Directives No May 10:31am Reason for Referral Specialty Diagnoses / Procedures Referred By Gretchen sharma Referred To Contact Radiology Diagnoses Lumbar radiculopathy, chronic Procedures MR lumbar spine without contrast Romana Santana, ALICIA [address] [place] [address] Referral ID Status Reason Start Date Expiration Date V isits Requested Visits Authorized [id number] Pending Review 05/27/2023 05/26/2024 1 1 Reason *FU 04/24 A1C 12.3 - on trulicity and orals. Aches all over. Added lantus now, would benefit from streamlining and improvement of glucose Diagnosis 1 Type 2 diabetes amy itus with hyperglycemia (E11.65) Referral Organization [facility] Referring Provider First Name Karol Referring Provider Last Name Urbano Referring Provider Specialty Family [facility] Referred Organization [facility] Referred Provider Carlos Thomson Referred Address [address],[place], [place],[address] Referred Provider Specialty Nurse Beena salazar Referral Priority Routine General Notes Aurea Valverde 04:07:20 PM >received today, multiple attachments made, notes are locked, referral faxed P2P Reason *FU 01/[address] Mas/Kelly; recent xray. Increased pain and sciatica to L leg. Diagnosis 1 Lumbar radiculopathy (M54.16) Referral Organization [facility] Referring Provider First Name Karol Referring Provider Last Name Urbano Referring Provider Specialty Family [facility] Referred Organization Unknown Facility Referred Provider Dale Betancourt Jr. Referred Provider Specialty Pain Medicin e Referral Priority Routine General Notes Aurea Valverde 01:09:00 PM >received today, attachments made, notes locked, referral faxed Chief Complaint and Reason for Visit Chief Complaint Discuss Dm Medicatio ns Deidre reader Amb Documentation 2 Month Check Up Reason for Visit Type 2 diabetes amy itus with hyperglycemia Chief Complaint Discuss Dm Medicatio ns Deidre reader Amb Documentation 2 Month Check Up Meter download Reason for Visit Type 2 diabetes amy itus with hyperglycemia HTN (hypertension) Spinal stenosis Type 2 diabetes mellitus with hyperglycemia Type 2 diabetes mellitus with hyperglycemia Chief Complaint Deidre reader Amb Documentation 2 Month Check Up Meter download 4 week follow up Reason for Visit Type 2 diabetes amy itus with hyperglycemia HTN (hypertension) Spinal stenosis Type 2 diabetes mellitus with hyperglycemia Type 2 diabetes mellitus with hyperglycemia Lumbar back pain with radiculopathy affecting left lower extremity Chief Complaint Amb Documentation 2 Month Check Up Meter download 4 week follow up DMN f/u-METER Reason for Visit HTN (hypertension) Spinal stenosis Type 2 diabetes mellitus with hyperglycemia Type 2 diabetes mellitus with hyperglycemia Lumbar back pain with radiculopathy affecting left lower extremity Type 2 diabetes mellitus with hyperglycemia Type 2 diabetes mellitus with hyperglycemia Chief Complaint 4 week follow up DMN f/u-METER 6 week f/u / meter Reason for Visit Lumbar back pain wit h radiculopathy affecting left lower extremity Type 2 diabetes mellitus with hyperglycemia Dietary counseling and surveillance HTN (hypertension) 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 Obstructive sleep apnea Polyneuropathy, unspecified Type 2 diabetes mellitus with hyperglycemia Chief Complaint DMN f/u-METER 6 week f/u / meter V-[employer] training Reason for Visit Dietary counseling a nd surveillance HTN (hypertension) Hypercholesterolemia prison current use of insulin Obstructive sleep apnea Polyneuropathy, unspecified Type 2 diabetes mellitus with hyperglycemia Type 2 diabetes mellitus with hyperglycemia Chief Complaint 6 week f/u / meter V-GO training 8 week f/u-METER Reason for Visit Dietary counseling a nd surveillance HTN (hypertension) 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 Obstructive sleep apnea Polyneuropathy, unspecified Type 2 diabetes mellitus with hyperglycemia Type 2 diabetes mellitus with hyperglycemia Type 2 diabetes mellitus with hyperglycemia Chief Complaint V-GO training 8 week f/u-METER E11.65 fatigue/asthma concerns Reason for Visit Type 2 diabetes amy itus with hyperglycemia Dietary counseling and surveillance HTN (hypertension) 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 Obstructive sleep apnea Polyneuropathy, unspecified Type 2 diabetes mellitus with hyperglycemia Asthma Fatigue Chief Complaint 8 week f/u-METER E11.65 fatigue/asthma concerns J45.90 J45.90 Reason for Visit Dietary counseling a nd surveillance HTN (hypertension) 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 Obstructive sleep apnea Polyneuropathy, unspecified Type 2 diabetes mellitus with hyperglycemia Asthma Fatigue Obstructive sleep apnea Chief Complaint 8 week f/u-METER E11.65 fatigue/asthma concerns J45.90 J45.90 8 week f/u-DMN f/u-METER Reason for Visit Dietary counseling a nd surveillance HTN (hypertension) 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 Obstructive sleep apnea Polyneuropathy, unspecified Type 2 diabetes mellitus with hyperglycemia Asthma Fatigue Obstructive sleep apnea Dietary counseling and surveillance HTN (hypertension) 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 Obstructive sleep apnea Polyneuropathy, unspecified Type 2 diabetes mellitus with hyperglycemia Additional Source Comments INFORMATION SOURCE (unrecogn ized section and content) DATE CREATED AUTHOR 09/18/2017 [facility] DATE CREATED AUTHOR AUTHOR'S ORGANIZ ATION 09/19/2017 [facility] DATE CREATED AUTHOR AUTHOR'S ORGANIZ ATION 07/09/2022 [facility] DATE CREATED AUTHOR AUTHOR'S ORGANIZ ATION 09/01/2023 [facility] DATE CREATED AUTHOR AUTHOR'S ORGANIZ ATION 01/28/2024 [facility] REASON FOR VISIT (unrecogniz ed section and content) Reason Comments [facility] Teams (unrecognized sec tion and content) Team Status: Active Member Role Status Dates Karol Clement MD Primary Care Provider Active Team Status: Inactive Member Role Status Dates Karol Clement MD Primary Care Provide r, Attending Provider Active Start: July 22, 2023 End: July 22, 2023 Team Status: Inactive Member Role Status Dates Karol Clement MD Primary Care Provider Active Start: August 27, 2023 End: August 27, 2023 Marci Wilson APRN Attending Provider Active Start: August 27, 2023 End: August 27, 2023 Team Status: Inactive Member Role Status Dates Karol Clement MD Primary Care Provider Active Start: October 08, 2023 End: October 08, 2023 Marci Wilson APRN Attending Provider Active Start: October 08, 2023 End: October 08, 2023 Team Status: Active Member Role Status Dates Karol Clement MD Primary Care Provider Active Start: June 09, 2023 Lyubov Fonseca Attending Provider Active Start: [facility] 2023 Team Status: Inactive Member Role Status Dates Karol Clement MD Primary Care Provide r, Attending Provider Active Start: June 16, 2023 End: June 16, 2023 Team Status: Inactive Member Role Status Dates Karol Clement MD Primary Care Provider Active Start: June 25, 2023 End: June 25, 2023 Marci Wilson APRN Attending Provider Active Start: June 25, 2023 End: June 25, 2023 Junior Account Manager Relationship Specialty Start Date End Date Karol Clement MD [facility] [place] [address] PCP - General Family Medicine 02/18/23 Team Status: Inactive Member Role Status Dates Karol Clement MD Attending Provider Active St art: April 16, 2023 End: April 16, 2023 Team Status: Active Member Role Status Dates Emely Anna DNP Primary Care Provid er, Attending Provider Active Start: April 16, 2023 Team Status: Inactive Member Role Status Dates Marci Wilson APRN Attending Provider Active Start: May 28, 2023 End: May 28, 2023 Karol Clement MD Primary Care Provider Active Start: May 28, 2023 End: May 28, 2023 Team Status: Inactive Member Role Status Dates Karol Clement MD Primary Care Provider Active Start: October 23, 2023 End: October 23, 2023 Alexey Alba RN Attending Provider Active St art: October 23, 2023 End: October 23, 2023 Marci Wilson APRN Active Star t: October 23, 2023 End: October 23, 2023 Team Status: Inactive Member Role Status Dates Karol Clement MD Primary Care Provider Active Start: December 03, 2023 End: December 03, 2023 Marci Wilson APRN Attending Provider Active Start: December 03, 2023 End: December 03, 2023 Team Status: Inactive Member Role Status Dates Marci Wilson APRN Attending Provider Active Start: December 03, 2023 End: December 03, 2023 Team Status: Inactive Member Role Status Dates Karol Clement MD Primary Care Provide r, Attending Provider Active Start: January 07, 2024 End: January 07, 2024 Team Status: Inactive Member Role Status Deepa Clement MD Primary Care Provide r, Attending Provider Active Start: January 27, 2024 End: January 27, 2024 Team Status: Active Member Role Status Dates Karol Clement MD Primary Care Provide r, Other Provider Active Start: January 27, 2024 Deepti Peoples MD Attending Provider Active Start: January 27, 2024 Team Status: Inactive Member Role Status Deepa Clement MD Primary Care Provider Active Start: January 28, 2024 End: January 28, 2024 Marci Wilson APRN Attending Provider Active Start: January 28, 2024 End: January 28, 2024 Goals (unrecognized section and content) Goals may be documented in a n alternate section FOR RECORDS PERTAINING TO PATIENTS WHO ARE [...] BE BASED ON THE PRIMARY CLINICAL RECORDS. [facility] provides no warranty or guarantee of the accuracy or completeness of information in this document.
[2024-03-19 08:49] LABS: Calcium 8.9 mg/dL (8.5-10.1)
[2024-03-22 14:07] LABS: PTH, Intact 34 pg/mL (15-65)
== END 2024-03-19 08:06 | disposition home or self-care (01) ==
LOC: LAB 08:06
PROVIDERS: PCP Family Medicine; Visit Provider Family Medicine
DX: R53.82 Chronic fatigue, unspecified (principal)
CPT/HCPCS: 36415; 82310; 83970